=== PATIENT | female | born 1970 | race Caucasian/White ===

== ENCOUNTER 2017-06-18 16:34 | Inpatient (IN) | payer SELFPAY ==
[2017-06-18] MEDS ORDERED: Albuterol Sulfate 2.5 mg/0.5 ml Neb ONE (17:01)
[2017-06-18] MEDS ORDERED: Albuterol Sulfate 2.5 mg/3 ml Neb ONE (17:01)
[2017-06-18] MEDS ORDERED: Magnesium Sulfate 2 GM/100 ML BAG ONE (17:08)
[2017-06-18] MEDS ORDERED: Dexamethasone 4 mg/ml Vial ONE (17:08)
[2017-06-18 17:11] LABS: Oxyhemoglobin 91.1 % (94.0-97.0); Sodium 139 mmol/L (135-148)
[2017-06-18 17:12] LABS: Mode RA; Vent NO
[2017-06-18 17:14] LABS: Bilirubin Negative (Negative); Glucose, Urine (Dipstick) Negative (Negative)
[2017-06-18 17:15] LABS: PTT 28.3 SEC (22.9-36.1)
[2017-06-18 17:15] LABS: Blood, Urine Moderate (Negative); Ketone, Urine Negative (Negative); Nitrite Negative (Negative); Protein, Urine (Dipstick) Negative (Neg-Trace); Urobilinogen 0.2 mg/dL (0.2-1.0)
[2017-06-18 17:29] LABS: Bacteria/HPF None Seen HPF (None Seen); Hyaline Casts/LPF 0-3 HYALINE CAST LPF (0-3 Hyaline); Squamous Epithelial 0-3 HPF (0-3); WBC/HPF 0-3 HPF (0-3)
[2017-06-18 17:32] LABS: #Lymphocytes 1.5 thou/uL (1.20-3.40); #Monocytes 0.6 thou/uL (0.11-0.59); #Neutrophils 4.4 thou/uL (1.40-6.50); %Basophils 0.8 % (0.0-1.0); %Eosinophils 0.4 % (0.0-10.0); %Lymphocytes 22.6 % (21.0-51.0); %Monocytes 8.9 % (0.0-10.0); Hematocrit 36.8 % (36.0-47.0); Mean Platelet Volume 6.7 fL (7.4-10.4); White Blood Cell (WBC) Count 6.5 thou/uL (4.8-10.8)
[2017-06-18 17:36] LABS: Troponin I Less than 0.010 ng/mL (< 0.028)
[2017-06-18 17:37] LABS: ALT (SGPT) 10 U/L (8-55); AST (SGOT) 18 U/L (5-34); Alkaline Phosphatase 60 U/L (40-150); Anion Gap 15 mmol/L (10-20); BUN (Urea Nitrogen) 9 mg/dL (7.0-18.7); Bilirubin, Total 0.2 mg/dL (0.2-1.2); CK (CPK) 388 U/L (29-168); Calc. Creatinine Clearance 0 mL/min (70-130); Calcium 8.6 mg/dL (7.8-10.44); Carbon Dioxide 21 mmol/L (22-29); Chloride 105 mmol/L (98-107); Estimated GFR-MDRD 55; Globulin 2.7 g/dL (2.4-3.5); Lipase Less than 4 U/L (8-78); Protein, Total 6.6 g/dL (6.0-8.3)
[2017-06-18 17:39] LABS: Lactic Acid - Sepsis 3.3 mmol/L (0.5-2.2)
[2017-06-18] MEDS ORDERED: Potassium Chloride 20 MEQ TAB ONE (18:55)
--- NOTE | 2017-06-18 18:59 | RAD ---
SINGLE VIEW OF THE CHEST: 06/18/17 COMPARISON: 03/20/17 HISTORY: Shortness of breath and mid sternal chest pain. FINDINGS: Single view of the chest shows a normal sized cardiomediastinal silhouette. There is no evidence of consolidation, mass, or pleural effusion. The bones are unremarkable. IMPRESSION: No evidence of acute cardiopulmonary disease. POS: [facility]
[2017-06-18] MEDS ORDERED: Ondansetron ODT 4 MG TAB SL PRN (19:37)
[2017-06-18] MEDS ORDERED: Ondansetron HCl/PF 4 MG/2 ML Vial IVP PRN (19:37)
[2017-06-18] MEDS ORDERED: Sodium Chloride 0.9% 1,000 ML IV SCH (19:37)
[2017-06-18] MEDS ORDERED: Potassium Chloride 20 MEQ TAB PO SCH (21:00)
[2017-06-18] MEDS ORDERED: Dexamethasone 4 mg/ml Vial SLOW IVP SCH (21:00)
[2017-06-18] MEDS: HYDROcodone/Acetaminophen 10/325 mg Tablet PO PRN (21:10)
[2017-06-18 21:29] VITALS: BMI 25.4
[2017-06-19] MEDS: HYDROcodone/Acetaminophen 10/325 mg Tablet PO PRN (01:34)
[2017-06-19] MEDS ORDERED: Acetaminophen 325 MG TAB PO PRN (04:28)
[2017-06-19] MEDS ORDERED: Guaifenesin DM 100-10/5 ML UDCUP PO PRN (04:28)
[2017-06-19] MEDS ORDERED: Sodium Chloride 0.9% 1,000 ML IV SCH (04:30)
--- NOTE | 2017-06-19 04:55 | HP ---
REASON FOR ADMISSION: COPD exacerbation. HISTORY OF PRESENTING ILLNESS: The patient gives history of having shortness of breath, which started on Friday. She also had associated headaches. She also felt febrile Friday evening. Patient thought if she increases her albuterol nebulization, her wheezing would reduce. This continued on Friday. She has had cough with expectoration of green sputum. Finally, patient made it to emergency room as her wheezing got worse. She continues to smoke 4-6 cigarettes a day. No complaints of chest pain, palpitation, PND or orthopnea. PAST MEDICAL AND SURGICAL HISTORY: History of COPD, history of CVA with no residual, tubal ligation, knee surgery, cholecystectomy. CURRENT MEDICATIONS: Albuterol nebulizer q.4 hourly p.r.n., albuterol inhaler q.6 hourly p.r.n. ALLERGIES: To ASPIRIN, PENICILLIN. PERSONAL HISTORY: Smokes 4 cigarettes a day. Does not abuse alcohol or drugs. No history of smoking. FAMILY HISTORY: Parents have had history of coronary artery disease. REVIEW OF SYSTEMS: The following complete review of systems was negative, unless otherwise mentioned in the HPI or below: Constitutional: Weight loss or gain, ability to conduct usual activities. Skin: Rash, itching. Eyes: Double vision, pain. ENT/Mouth: Nose bleeding, neck stiffness, pain, tenderness. Cardiovascular: Palpitations, dyspnea on exertion, orthopnea. Respiratory: Shortness of breath, wheezing, cough, hemoptysis, fever or night sweats. Gastrointestinal: Poor appetite, abdominal pain, heartburn, nausea, vomiting, constipation, or diarrhea. Genitourinary: Urgency, frequency, dysuria, nocturia. Musculoskeletal: Pain, swelling. Neurologic/Psychiatric: Anxiety, depression. Allergy/Immunologic: Skin rash, bleeding tendency. PHYSICAL EXAMINATION: GENERAL: The patient is a 46-year-old female who is currently not in any acute distress. VITAL SIGNS: Blood pressure 116/74, pulse 84 per minute, respiratory rate 22 per minute, temperature 97.5 degrees Fahrenheit, saturating 95% on room air. NECK: Supple, no elevated JVD. HEENT: Extraocular muscles intact. Pupils reacting to light. Oral cavity, mucous membranes are dry. No exudates or congestion. CARDIOVASCULAR: S1, S2 heard. Regular rhythm. RESPIRATORY SYSTEM: Scattered wheezes plus bilateral. No rales. ABDOMEN: Soft, bowel sounds heard. No tenderness, rigidity or guarding. EXTREMITIES: No peripheral edema or calf tenderness. VASCULAR SYSTEM: Peripheral pulses 1+ bilateral. No ischemic ulcerations or gangrene. CENTRAL NERVOUS SYSTEM: No gross focal deficits seen. Patient is alert, awake , oriented x3. PSYCHIATRIC SYSTEM: The patient's mood is euthymic. No hallucinations or delusions. LABORATORY AND X-RAY FINDINGS: Chest x-ray done shows no acute cardiopulmonary abnormalities. EKG done shows sinus rhythm at 82 beats per minute. There is poor R-wave progression. Influenza A and B antigens are negative. First set of cardiac enzymes are negative. BNP 59. Potassium is 3.0, bicarbonate is 21, BUN 9, creatinine 1.0. Blood gas done shows a pH of 7.43, PCO2 of 35, pO2 of 69. White count of 6, H and H 12 and 36, platelet count 212 with 67% neutrophils. CLINICAL IMPRESSION AND PLAN: The patient will be admitted to medical floor for acute on chronic obstructive pulmonary disease exacerbation. She will be on DuoNeb q.6 hourly along with empiric doxycycline 100 mg p.o. twice daily. We will also place her on Solu-Medrol 40 mg IV q.6 hourly. She will be on normal saline at 50 mL per hour. This will be discontinued after 1 L. Patient has had recurrent hospitalization with ongoing smoking and noncompliance with medications due to financial reasons. We will continue to closely monitor her on medical floor. LYRIC
[2017-06-19] MEDS: Nicotine 14 MG PATCH TD SCH (05:09)
[2017-06-19] MEDS ORDERED: Diabetic Tussin 200 MG/10 ML UDCUP PO PRN (06:56)
[2017-06-19] MEDS ORDERED: Ondansetron HCl/PF 4 MG/2 ML Vial IVP PRN (06:56)
[2017-06-19] MEDS ORDERED: Eucerin (Mineral Oil/Petrolatum,White) 30 gm Jar TOP PRN (06:56)
[2017-06-19] MEDS ORDERED: cloNIDine HCl 0.1 MG TAB PO PRN (06:56)
[2017-06-19] MEDS ORDERED: Ondansetron ODT 4 MG TAB PO PRN (06:56)
[2017-06-19] MEDS ORDERED: Benzonatate 100 MG CAP PO PRN (06:56)
[2017-06-19] MEDS ORDERED: Artificial Tears 18 DROP/0.9 ML EA EYE PRN (06:56)
[2017-06-19] MEDS ORDERED: Mag-Al 1200 mg/1200 mg/30 ML UDCUP PO PRN (06:56)
[2017-06-19] MEDS ORDERED: Bisacodyl 10 MG SUPP PR PRN (06:56)
[2017-06-19] MEDS ORDERED: Milk Of Magnesia 30 ML UDCUP PO PRN (06:56)
[2017-06-19] MEDS ORDERED: Loratadine 10 MG TAB PO PRN (06:56)
[2017-06-19] MEDS ORDERED: Senokot 8.6 MG TAB PO PRN (06:56)
[2017-06-19] MEDS ORDERED: Sodium Chloride 0.65% Nasal 44 ML BOT EA NARE PRN (06:56)
[2017-06-19] MEDS ORDERED: Loperamide HCl 2 MG CAP PO PRN (06:56)
[2017-06-19] MEDS ORDERED: Chloraseptic Spray 180 ml Bottle PO PRN (06:56)
[2017-06-19] MEDS ORDERED: Temazepam 15 MG CAP PO PRN (06:56)
[2017-06-19] MEDS: Potassium Chloride 20 MEQ TAB PO SCH (08:18)
[2017-06-19] MEDS: guaiFENesin ER 600 MG TAB PO SCH ×2 (08:20→20:26)
[2017-06-19] MEDS: Famotidine 20 MG TAB PO SCH ×2 (08:21→20:25)
[2017-06-19] MEDS: Doxycycline 100 MG CAP PO SCH ×2 (08:24→20:25)
[2017-06-19] MEDS: Enoxaparin Sodium 40 MG/0.4 ML SYRINGE SC SCH (08:37)
[2017-06-19] MEDS: Docusate 100 MG CAP PO SCH ×2 (08:37→20:25)
--- NOTE | 2017-06-19 10:23 | PDOC.PN ---
- Subjective Encounter Start Date: 06/19/17 Encounter Start Time: 07:40 -: old records requested/rev pt is going outside smoking - Objective Resuscitation Status: Resuscitation Status FULL:Full Resuscitation MAR Reviewed: Yes Vital Signs & Weight: Vital Signs (12 hours) Temp Pulse Resp BP BP Pulse Ox 06/19/17 08:00 98.2 F 55 L 18 96 06/19/17 07:05 92 L 06/19/17 07:04 55 L 18 92 L 06/19/17 07:00 97.8 F 55 L 30 H 110/68 97 06/19/17 04:41 97.4 F L 69 18 97/60 92 L 06/19/17 01:30 102/60 06/19/17 01:04 98.0 F 86 20 95/58 L 92 L 06/18/17 23:01 87 18 93 L Weight Weight 138 lb 12.8 oz I&O: 06/18/17 06/19/17 06/20/17 06:59 06:59 06:59 Intake Total 240 Balance 240 Result Diagrams: 06/18/17 17:03 06/18/17 17:02 Phys Exam - Physical Examination Constitutional: NAD HEENT: PERRLA, moist MMs, sclera anicteric Neck: no JVD, supple Respiratory: no rales, wheezing present Cardiovascular: RRR, no significant murmur, no rub Gastrointestinal: soft, non-tender, no distention, positive bowel sounds Musculoskeletal: no edema, pulses present Neurological: non-focal, normal sensation Psychiatric: normal affect, A&O x 3 Skin: no rash, normal turgor Dx/Plan (1) COPD exacerbation Code(s): J44.1 - CHRONIC OBSTRUCTIVE PULMONARY DISEASE W (ACUTE) EXACERBATION Status: Acute (2) Hypokalemia Code(s): E87.6 - HYPOKALEMIA Status: Acute (3) Chronic low back pain Code(s): M54.5 - LOW BACK PAIN; G89.29 - OTHER CHRONIC PAIN Status: Chronic (4) Medical non-compliance Code(s): Z91.19 - PATIENT'S NONCOMPLIANCE W OTH MEDICAL TREATMENT AND REGIMEN Status: Chronic (5) Tobacco abuse Code(s): Z72.0 - TOBACCO USE Status: Chronic - Plan cont current plan of care, continue antibiotics, respiratory therapy * DC IVF * continue current optimum medical therapy for COPD * medication reviewed as below * symptomatic treatment. Review of Systems - Review of Systems Constitutional: negative: Fever, Chills, Sweats, Weakness, Malaise, Other Eyes: negative: Pain, Vision Change, Conjunctivae Inflammation, Eyelid Inflammation, Redness, Other ENT: negative: Ear Pain, Ear Discharge, Nose Pain, Nose Discharge, Nose Congestion, Mouth Pain, Mouth Swelling, Throat Pain, Throat Swelling, Other Respiratory: Cough, Shortness of Breath, Wheezing. negative: Dry, Hemoptysis, SOB with Excertion, Pleuritic Pain, Sputum Cardiovascular: negative: Chest Pain, Palpitations, Orthopnea, Paroxysmal Noc. Dyspnea, Edema, Light Headedness, Other Gastrointestinal: negative: Nausea, Vomiting, Abdominal Pain, Diarrhea, Constipation, Melena, Hematochezia, Other Genitourinary: negative: Dysuria, Frequency, Incontinence, Hematuria, Retention , Other Musculoskeletal: negative: Neck Pain, Shoulder Pain, Arm Pain, Back Pain, Hand Pain, Leg Pain, Foot Pain, Other - Medications/Allergies Allergies/Adverse Reactions: Allergies Allergy/AdvReac Type Severity Reaction Status Date / Time aspirin Allergy Verified 12/17/16 12:53 Penicillins Allergy Verified 12/17/16 12:53 Medications: Current Medications Acetaminophen (Tylenol) 650 mg PO Q4H PRN PRN Reason: Headache/Fever or Pain Hydrocodone Bitart/Acetaminophen ([place] 5/325) 1 tab PO Q4H PRN PRN Reason: Moderate Pain (4-6) Al Hydroxide/Mg Hydroxide (Maalox) 15 ml PO Q4H PRN PRN Reason: Heartburn or Indigestion Albuterol/Ipratropium (Duoneb) 3 ml NEB [id number] [facility] Last Admin: 06/19/17 07:04 Dose: 3 ml Artificial Tears (Tears Naturale) 0 drop EA EYE PRN PRN PRN Reason: Dry Eyes Benzonatate (Tessalon) 100 mg PO Q4H PRN PRN Reason: Cough Bisacodyl (Dulcolax) 10 mg IN DAILYPRN PRN PRN Reason: Constipation Clonidine HCl (Catapres) 0.1 mg PO Q4H PRN PRN Reason: Systolic BP > 180 Docusate Sodium (Colace) 100 mg PO BID [facility] Last Admin: 06/19/17 08:37 Dose: Not Given Doxycycline Hyclate (Vibramycin) 100 mg PO BID [facility] Last Admin: 06/19/17 08:24 Dose: 100 mg Enoxaparin Sodium (Lovenox) 40 mg SC 09 [facility] Last Admin: 06/19/17 08:37 Dose: Not Given Famotidine (Pepcid) 20 mg PO BID [facility] Last Admin: 06/19/17 08:21 Dose: 20 mg Guaifenesin (Robitussin Sf) 200 mg PO Q4H PRN PRN Reason: Cough Guaifenesin (Mucinex) 600 mg PO Q12HR [facility] Last Admin: 06/19/17 08:20 Dose: 600 mg Guaifenesin/Dextromethorphan (Robitussin Dm) 15 ml PO Q4H PRN PRN Reason: Cough Hydralazine HCl (Apresoline) 10 mg SLOW IVP Q4H PRN PRN Reason: Systolic BP > 180 Sodium Chloride (Normal Saline 0.9%) 1,000 mls @ 50 mls/hr IV .Q20H [facility] Stop: 06/20/17 00:29 Last Admin: 06/19/17 05:07 Dose: 1,000 mls Loperamide HCl (Imodium) 2 mg PO PRN PRN PRN Reason: Diarrhea/Loose Stools Loratadine (Claritin) 10 mg PO DAILYPRN PRN PRN Reason: Sinus Symptoms Magnesium Hydroxide (Milk Of Magnesium) 30 ml PO DAILYPRN PRN PRN Reason: Constipation Methylprednisolone Sodium Succinate (Solu-Medrol) 40 mg IVP Q6HR [facility] Last Admin: 06/19/17 05:08 Dose: 40 mg Mineral Oil/White Petrolatum (Eucerin Cream) 0 gm TOP BIDPRN PRN PRN Reason: Dry Skin Mometasone Furoate/Formoterol Fumar (Dulera 200 Mcg/5 Mcg Inhaler) 2 puff INH BID-RT [facility] Nicotine (Nicoderm Patch) 14 mg TD Q24HR [facility] Last Admin: 06/19/17 05:09 Dose: Not Given Ondansetron HCl (Zofran Odt) 4 mg PO Q6H PRN PRN Reason: Nausea/Vomiting Ondansetron HCl (Zofran) 4 mg IVP Q6H PRN PRN Reason: Nausea/Vomiting Phenol (Chloraseptic [place] 180 Ml Bot) 0 ml PO PRN PRN PRN Reason: Sore Throat Potassium Chloride (K-Dur) 40 meq PO QAM-WM [facility] Last Admin: 06/19/17 08:18 Dose: 40 meq Senna (Senokot) 2 tab PO HSPRN PRN PRN Reason: Constipation Sodium Chloride ([place] Nasal [place] 0.65%) 0 ml EA NARE QIDPRN PRN PRN Reason: Nasal Congestion Sodium Chloride (Flush - Normal Saline) 10 ml IVF Q12HR [facility] Last Admin: 06/19/17 08:59 Dose: 10 ml Sodium Chloride (Flush - Normal Saline) 10 ml IVF PRN PRN PRN Reason: Saline Flush Temazepam (Restoril) 15 mg PO HSPRN PRN PRN Reason: Insomnia
[2017-06-19] MEDS: HYDROcodone/Acetaminophen 5/325 mg Tablet PO PRN ×2 (16:46→21:55)
[2017-06-19] MEDS: Mometasone/Formoterol 120 PUFF INHALER INH SCH (18:32)
[2017-06-20 05:03] LABS: #Lymphocytes 0.8 thou/uL (1.20-3.40); #Monocytes 0.2 thou/uL (0.11-0.59); #Neutrophils 7.3 thou/uL (1.40-6.50); %Basophils 0.2 % (0.0-1.0); %Eosinophils 0.1 % (0.0-10.0); %Lymphocytes 9.6 % (21.0-51.0); %Monocytes 2.9 % (0.0-10.0); Hematocrit 38.3 % (36.0-47.0); Mean Platelet Volume 7.1 fL (7.4-10.4); Red Blood Cell (RBC) Count 3.91 mill/uL (4.20-5.40); White Blood Cell (WBC) Count 8.3 thou/uL (4.8-10.8)
[2017-06-20] MEDS: HYDROcodone/Acetaminophen 5/325 mg Tablet PO PRN (05:49)
[2017-06-20 06:11] LABS: Anion Gap 15 mmol/L (10-20); BUN (Urea Nitrogen) 10 mg/dL (7.0-18.7); Calc. Creatinine Clearance 79 mL/min (70-130); Calcium 9.3 mg/dL (7.8-10.44); Carbon Dioxide 22 mmol/L (22-29); Chloride 106 mmol/L (98-107); Estimated GFR-MDRD 68
[2017-06-20] MEDS: Nicotine 14 MG PATCH TD SCH (07:00)
[2017-06-20] MEDS: Mometasone/Formoterol 120 PUFF INHALER INH SCH ×2 (08:50→19:28)
[2017-06-20] MEDS: Potassium Chloride 20 MEQ TAB PO SCH (09:17)
[2017-06-20] MEDS: Doxycycline 100 MG CAP PO SCH ×2 (09:18→23:13)
[2017-06-20] MEDS: Famotidine 20 MG TAB PO SCH ×2 (09:19→23:13)
[2017-06-20] MEDS: guaiFENesin ER 600 MG TAB PO SCH ×2 (09:20→23:16)
[2017-06-20] MEDS: Enoxaparin Sodium 40 MG/0.4 ML SYRINGE SC SCH (09:20)
[2017-06-20] MEDS: Docusate 100 MG CAP PO SCH ×2 (09:21→23:14)
[2017-06-20] MEDS: HYDROcodone/Acetaminophen 10/325 mg Tablet PO PRN ×3 (09:47→23:35)
--- NOTE | 2017-06-20 11:07 | PDOC.PN ---
- Subjective Encounter Start Date: 06/20/17 Encounter Start Time: 09:50 c/o neck pain, going outside to smoke, on room air - Objective Resuscitation Status: Resuscitation Status FULL:Full Resuscitation MAR Reviewed: Yes Vital Signs & Weight: Vital Signs (12 hours) Temp Pulse Resp BP Pulse Ox 06/20/17 08:50 68 20 94 L 06/20/17 08:37 94 L 06/20/17 08:32 68 20 94 L 06/20/17 08:00 98.6 F 68 20 94 L 06/20/17 07:39 97.6 F 65 16 112/70 93 L 06/20/17 00:32 69 16 92 L Weight Weight 138 lb 12.8 oz I&O: 06/19/17 06/20/17 06/21/17 06:59 06:59 06:59 Intake Total 960 Balance 960 Result Diagrams: 06/20/17 04:04 06/20/17 04:04 Phys Exam - Physical Examination Constitutional: NAD HEENT: PERRLA, moist MMs, sclera anicteric Neck: no JVD, supple neck sprain+ Respiratory: no wheezing, no rales, no rhonchi Cardiovascular: RRR, no significant murmur, no rub Gastrointestinal: soft, non-tender, no distention, positive bowel sounds Musculoskeletal: no edema, pulses present Neurological: non-focal, normal sensation, moves all 4 limbs Psychiatric: normal affect, A&O x 3 Skin: no rash, normal turgor Dx/Plan (1) COPD exacerbation Code(s): J44.1 - CHRONIC OBSTRUCTIVE PULMONARY DISEASE W (ACUTE) EXACERBATION Status: Acute (2) Hypokalemia Code(s): E87.6 - HYPOKALEMIA Status: Acute (3) Chronic low back pain Code(s): M54.5 - LOW BACK PAIN; G89.29 - OTHER CHRONIC PAIN Status: Chronic (4) Medical non-compliance Code(s): Z91.19 - PATIENT'S NONCOMPLIANCE W OTH MEDICAL TREATMENT AND REGIMEN Status: Chronic (5) Tobacco abuse Code(s): Z72.0 - TOBACCO USE Status: Chronic - Plan cont current plan of care, continue antibiotics, respiratory therapy * will do repeat blood culture as current one is positive for coag neg staph. * will increase dose of norco for pain * will add flexeril * medication reviewed as below * symptomatic treatment. Review of Systems - Review of Systems Eyes: negative: Pain, Vision Change, Conjunctivae Inflammation, Eyelid Inflammation, Redness, Other ENT: negative: Ear Pain, Ear Discharge, Nose Pain, Nose Discharge, Nose Congestion, Mouth Pain, Mouth Swelling, Throat Pain, Throat Swelling, Other Respiratory: negative: Cough, Dry, Shortness of Breath, Hemoptysis, SOB with Excertion, Pleuritic Pain, Sputum, Wheezing Cardiovascular: negative: Chest Pain, Palpitations, Orthopnea, Paroxysmal Noc. Dyspnea, Edema, Light Headedness, Other Gastrointestinal: negative: Nausea, Vomiting, Abdominal Pain, Diarrhea, Constipation, Melena, Hematochezia, Other Genitourinary: negative: Dysuria, Frequency, Incontinence, Hematuria, Retention , Other Musculoskeletal: Neck Pain. negative: Shoulder Pain, Arm Pain, Back Pain, Hand Pain, Leg Pain, Foot Pain, Other - Medications/Allergies Allergies/Adverse Reactions: Allergies Allergy/AdvReac Type Severity Reaction Status Date / Time aspirin Allergy Verified 12/17/16 12:53 Penicillins Allergy Verified 12/17/16 12:53 Medications: Current Medications Acetaminophen (Tylenol) 650 mg PO Q4H PRN PRN Reason: Headache/Fever or Pain Hydrocodone Bitart/Acetaminophen ([place] 10/325) 1 tab PO Q4H PRN PRN Reason: Mild-Moderate Pain (1-5) Last Admin: 06/20/17 09:47 Dose: 1 tab Hydrocodone Bitart/Acetaminophen ([place] 10/325) 2 tab PO Q4H PRN PRN Reason: Moderate to Severe Pain (6-10) Al Hydroxide/Mg Hydroxide (Maalox) 15 ml PO Q4H PRN PRN Reason: Heartburn or Indigestion Albuterol/Ipratropium (Duoneb) 3 ml NEB [id number] [facility] Last Admin: 06/20/17 08:32 Dose: 3 ml Artificial Tears (Tears Naturale) 0 drop EA EYE PRN PRN PRN Reason: Dry Eyes Benzonatate (Tessalon) 100 mg PO Q4H PRN PRN Reason: Cough Bisacodyl (Dulcolax) 10 mg IN DAILYPRN PRN PRN Reason: Constipation Clonidine HCl (Catapres) 0.1 mg PO Q4H PRN PRN Reason: Systolic BP > 180 Cyclobenzaprine HCl (Flexeril) 10 mg PO TID PRN PRN Reason: Muscle Spasm Docusate Sodium (Colace) 100 mg PO BID [facility] Last Admin: 06/20/17 09:21 Dose: Not Given Doxycycline Hyclate (Vibramycin) 100 mg PO BID [facility] Last Admin: 06/20/17 09:18 Dose: 100 mg Enoxaparin Sodium (Lovenox) 40 mg SC 09 [facility] Last Admin: 06/20/17 09:20 Dose: Not Given Famotidine (Pepcid) 20 mg PO BID [facility] Last Admin: 06/20/17 09:19 Dose: 20 mg Guaifenesin (Robitussin Sf) 200 mg PO Q4H PRN PRN Reason: Cough Guaifenesin (Mucinex) 600 mg PO Q12HR [facility] Last Admin: 06/20/17 09:20 Dose: 600 mg Guaifenesin/Dextromethorphan (Robitussin Dm) 15 ml PO Q4H PRN PRN Reason: Cough Hydralazine HCl (Apresoline) 10 mg SLOW IVP Q4H PRN PRN Reason: Systolic BP > 180 Loperamide HCl (Imodium) 2 mg PO PRN PRN PRN Reason: Diarrhea/Loose Stools Loratadine (Claritin) 10 mg PO DAILYPRN PRN PRN Reason: Sinus Symptoms Magnesium Hydroxide (Milk Of Magnesium) 30 ml PO DAILYPRN PRN PRN Reason: Constipation Methylprednisolone Sodium Succinate (Solu-Medrol) 40 mg IVP Q6HR [facility] Last Admin: 06/20/17 05:46 Dose: 40 mg Mineral Oil/White Petrolatum (Eucerin Cream) 0 gm TOP BIDPRN PRN PRN Reason: Dry Skin Mometasone Furoate/Formoterol Fumar (Dulera 200 Mcg/5 Mcg Inhaler) 2 puff INH BID-RT [facility] Last Admin: 06/20/17 08:50 Dose: 2 puff Nicotine (Nicoderm Patch) 14 mg TD Q24HR [facility] Last Admin: 06/20/17 07:00 Dose: Not Given Ondansetron HCl (Zofran Odt) 4 mg PO Q6H PRN PRN Reason: Nausea/Vomiting Ondansetron HCl (Zofran) 4 mg IVP Q6H PRN PRN Reason: Nausea/Vomiting Last Admin: 06/20/17 00:06 Dose: 4 mg Phenol (Chloraseptic [place] 180 Ml Bot) 0 ml PO PRN PRN PRN Reason: Sore Throat Last Admin: 06/19/17 14:24 Dose: 2 sprays Potassium Chloride (K-Dur) 40 meq PO QAM-WM [facility] Last Admin: 06/20/17 09:17 Dose: 40 meq Senna (Senokot) 2 tab PO HSPRN PRN PRN Reason: Constipation Sodium Chloride ([place] Nasal [place] 0.65%) 0 ml EA NARE QIDPRN PRN PRN Reason: Nasal Congestion Sodium Chloride (Flush - Normal Saline) 10 ml IVF Q12HR [facility] Last Admin: 06/20/17 09:21 Dose: 10 ml Sodium Chloride (Flush - Normal Saline) 10 ml IVF PRN PRN PRN Reason: Saline Flush Last Admin: 06/20/17 05:46 Dose: 10 ml Temazepam (Restoril) 15 mg PO HSPRN PRN PRN Reason: Insomnia
[2017-06-20] MEDS: Sterile Water 10 ML ONE ×2 (13:11→17:23)
[2017-06-21] MEDS ORDERED: diphenhydrAMINE HCl 25 MG CAP PO SCH (02:45)
[2017-06-21] MEDS: Nicotine 14 MG PATCH TD SCH (06:10)
[2017-06-21] MEDS ORDERED: diphenhydrAMINE HCl 25 MG CAP PO PRN (06:54)
[2017-06-21] MEDS: Mometasone/Formoterol 120 PUFF INHALER INH SCH ×2 (07:08→19:42)
[2017-06-21] MEDS: Potassium Chloride 20 MEQ TAB PO SCH (08:45)
[2017-06-21] MEDS: Famotidine 20 MG TAB PO SCH ×2 (08:46→19:34)
[2017-06-21] MEDS: guaiFENesin ER 600 MG TAB PO SCH ×2 (08:46→19:35)
[2017-06-21] MEDS: Docusate 100 MG CAP PO SCH ×2 (08:46→19:34)
[2017-06-21] MEDS: HYDROcodone/Acetaminophen 10/325 mg Tablet PO PRN ×3 (08:51→19:35)
[2017-06-21] MEDS: Enoxaparin Sodium 40 MG/0.4 ML SYRINGE SC SCH (09:05)
--- NOTE | 2017-06-21 12:24 | PDOC.PN ---
- Subjective Encounter Start Date: 06/21/17 Encounter Start Time: 10:20 Patient seen and examined. No new complaints. No overnight events - Objective Resuscitation Status: Resuscitation Status FULL:Full Resuscitation MAR Reviewed: Yes Vital Signs & Weight: Vital Signs (12 hours) Temp Pulse Resp BP Pulse Ox 06/21/17 08:00 97.7 F 70 22 H 114/72 92 L 06/21/17 07:08 60 12 06/21/17 06:56 90 L 06/21/17 06:54 60 12 06/21/17 04:00 97.5 F L 72 16 127/75 91 L 06/21/17 00:42 16 Weight Weight 138 lb 12.8 oz I&O: 06/20/17 06/21/17 06/22/17 06:59 06:59 06:59 Intake Total 960 240 Balance 960 240 Result Diagrams: 06/20/17 04:04 06/20/17 04:04 Phys Exam - Physical Examination Constitutional: NAD HEENT: PERRLA, moist MMs, sclera anicteric Neck: no JVD, supple Respiratory: no wheezing, no rales, no rhonchi reduced air entry Cardiovascular: RRR, no significant murmur, no rub Gastrointestinal: soft, non-tender, no distention, positive bowel sounds Musculoskeletal: no edema, pulses present Neurological: non-focal, normal sensation, moves all 4 limbs Psychiatric: normal affect, A&O x 3 Skin: no rash, normal turgor Dx/Plan (1) COPD exacerbation Code(s): J44.1 - CHRONIC OBSTRUCTIVE PULMONARY DISEASE W (ACUTE) EXACERBATION Status: Acute (2) Hypokalemia Code(s): E87.6 - HYPOKALEMIA Status: Acute (3) Chronic low back pain Code(s): M54.5 - LOW BACK PAIN; G89.29 - OTHER CHRONIC PAIN Status: Chronic (4) Medical non-compliance Code(s): Z91.19 - PATIENT'S NONCOMPLIANCE W OTH MEDICAL TREATMENT AND REGIMEN Status: Chronic (5) Tobacco abuse Code(s): Z72.0 - TOBACCO USE Status: Chronic (6) Lactic acidosis Code(s): E87.2 - ACIDOSIS Status: Acute (7) Neck pain Code(s): M54.2 - CERVICALGIA Status: Acute - Plan cont current plan of care, continue antibiotics, respiratory therapy * continue current optimum medical therapy for COPD * pt is slowly improving * medication reviewed as below * symptomatic treatment.. * repeat labs tomorrow * levaquin started Review of Systems - Review of Systems ENT: negative: Ear Pain, Ear Discharge, Nose Pain, Nose Discharge, Nose Congestion, Mouth Pain, Mouth Swelling, Throat Pain, Throat Swelling, Other Respiratory: negative: Cough, Dry, Shortness of Breath, Hemoptysis, SOB with Excertion, Pleuritic Pain, Sputum, Wheezing Cardiovascular: negative: Chest Pain, Palpitations, Orthopnea, Paroxysmal Noc. Dyspnea, Edema, Light Headedness, Other Gastrointestinal: negative: Nausea, Vomiting, Abdominal Pain, Diarrhea, Constipation, Melena, Hematochezia, Other Genitourinary: negative: Dysuria, Frequency, Incontinence, Hematuria, Retention , Other Musculoskeletal: negative: Neck Pain, Shoulder Pain, Arm Pain, Back Pain, Hand Pain, Leg Pain, Foot Pain, Other Skin: negative: Rash, Lesions, [place], Bruising, Other - Medications/Allergies Allergies/Adverse Reactions: Allergies Allergy/AdvReac Type Severity Reaction Status Date / Time aspirin Allergy Verified 12/17/16 12:53 Penicillins Allergy Verified 12/17/16 12:53 Medications: Current Medications Acetaminophen (Tylenol) 650 mg PO Q4H PRN PRN Reason: Headache/Fever or Pain Hydrocodone Bitart/Acetaminophen ([place] 10/325) 1 tab PO Q4H PRN PRN Reason: Mild-Moderate Pain (1-5) Last Admin: 06/20/17 17:25 Dose: 1 tab Hydrocodone Bitart/Acetaminophen ([place] 10/325) 2 tab PO Q4H PRN PRN Reason: Moderate to Severe Pain (6-10) Last Admin: 06/21/17 08:51 Dose: 2 tab Al Hydroxide/Mg Hydroxide (Maalox) 15 ml PO Q4H PRN PRN Reason: Heartburn or Indigestion Albuterol/Ipratropium (Duoneb) 3 ml NEB [id number] [facility] Last Admin: 06/21/17 06:54 Dose: 3 ml Artificial Tears (Tears Naturale) 0 drop EA EYE PRN PRN PRN Reason: Dry Eyes Benzonatate (Tessalon) 100 mg PO Q4H PRN PRN Reason: Cough Bisacodyl (Dulcolax) 10 mg OR DAILYPRN PRN PRN Reason: Constipation Clonidine HCl (Catapres) 0.1 mg PO Q4H PRN PRN Reason: Systolic BP > 180 Cyclobenzaprine HCl (Flexeril) 10 mg PO TID PRN PRN Reason: Muscle Spasm Diphenhydramine HCl (Benadryl) 25 mg PO Q4H PRN PRN Reason: Itching Docusate Sodium (Colace) 100 mg PO BID [facility] Last Admin: 06/21/17 08:46 Dose: 100 mg Enoxaparin Sodium (Lovenox) 40 mg SC 0900 [facility] Last Admin: 06/21/17 09:05 Dose: Not Given Famotidine (Pepcid) 20 mg PO BID [facility] Last Admin: 06/21/17 08:46 Dose: 20 mg Guaifenesin (Robitussin Sf) 200 mg PO Q4H PRN PRN Reason: Cough Guaifenesin (Mucinex) 600 mg PO Q12HR [facility] Last Admin: 06/21/17 08:46 Dose: 600 mg Guaifenesin/Dextromethorphan (Robitussin Dm) 15 ml PO Q4H PRN PRN Reason: Cough Hydralazine HCl (Apresoline) 10 mg SLOW IVP Q4H PRN PRN Reason: Systolic BP > 180 Levofloxacin (Levaquin) 500 mg PO 0600 [facility] Loperamide HCl (Imodium) 2 mg PO PRN PRN PRN Reason: Diarrhea/Loose Stools Loratadine (Claritin) 10 mg PO DAILYPRN PRN PRN Reason: Sinus Symptoms Magnesium Hydroxide (Milk Of Magnesium) 30 ml PO DAILYPRN PRN PRN Reason: Constipation Methylprednisolone Sodium Succinate (Solu-Medrol) 40 mg IVP Q6HR [facility] Last Admin: 06/21/17 12:20 Dose: 40 mg Mineral Oil/White Petrolatum (Eucerin Cream) 0 gm TOP BIDPRN PRN PRN Reason: Dry Skin Mometasone Furoate/Formoterol Fumar (Dulera 200 Mcg/5 Mcg Inhaler) 2 puff INH BID-RT [facility] Last Admin: 06/21/17 07:08 Dose: 2 puff Nicotine (Nicoderm Patch) 14 mg TD Q24HR [facility] Last Admin: 06/21/17 06:10 Dose: Not Given Ondansetron HCl (Zofran Odt) 4 mg PO Q6H PRN PRN Reason: Nausea/Vomiting Ondansetron HCl (Zofran) 4 mg IVP Q6H PRN PRN Reason: Nausea/Vomiting Last Admin: 06/20/17 00:06 Dose: 4 mg Phenol (Chloraseptic [place] 180 Ml Bot) 0 ml PO PRN PRN PRN Reason: Sore Throat Last Admin: 06/19/17 14:24 Dose: 2 sprays Potassium Chloride (K-Dur) 40 meq PO QAM[facility] Last Admin: 06/21/17 08:45 Dose: 40 meq Senna (Senokot) 2 tab PO HSPRN PRN PRN Reason: Constipation Sodium Chloride ([place] Nasal [place] 0.65%) 0 ml EA NARE QIDPRN PRN PRN Reason: Nasal Congestion Sodium Chloride (Flush - Normal Saline) 10 ml IVF Q12HR [facility] Last Admin: 06/21/17 12:20 Dose: 10 ml Sodium Chloride (Flush - Normal Saline) 10 ml IVF PRN PRN PRN Reason: Saline Flush Last Admin: 06/20/17 05:46 Dose: 10 ml Temazepam (Restoril) 15 mg PO HSPRN PRN PRN Reason: Insomnia
[2017-06-21] MEDS: Cyclobenzaprine 10 MG TAB PO PRN (23:02)
[2017-06-22 04:40] LABS: Anion Gap 12 mmol/L (10-20); BUN (Urea Nitrogen) 17 mg/dL (7.0-18.7); Calc. Creatinine Clearance 78 mL/min (70-130); Calcium 9.3 mg/dL (7.8-10.44); Carbon Dioxide 28 mmol/L (22-29); Chloride 102 mmol/L (98-107); Estimated GFR-MDRD 67
[2017-06-22 04:41] LABS: #Lymphocytes 1.3 thou/uL (1.20-3.40); #Monocytes 0.3 thou/uL (0.11-0.59); #Neutrophils 8.5 thou/uL (1.40-6.50); %Basophils 0.3 % (0.0-1.0); %Eosinophils 0.2 % (0.0-10.0); %Lymphocytes 12.7 % (21.0-51.0); %Monocytes 3.2 % (0.0-10.0); Mean Platelet Volume 6.8 fL (7.4-10.4); White Blood Cell (WBC) Count 10.2 thou/uL (4.8-10.8)
[2017-06-22] MEDS: HYDROcodone/Acetaminophen 10/325 mg Tablet PO PRN ×2 (06:11→21:11)
[2017-06-22] MEDS: Nicotine 14 MG PATCH TD SCH (06:16)
[2017-06-22] MEDS: Potassium Chloride 20 MEQ TAB PO SCH (07:53)
[2017-06-22] MEDS: Docusate 100 MG CAP PO SCH ×2 (07:53→20:59)
[2017-06-22] MEDS: Enoxaparin Sodium 40 MG/0.4 ML SYRINGE SC SCH (07:54)
[2017-06-22] MEDS: Famotidine 20 MG TAB PO SCH ×2 (07:54→21:00)
[2017-06-22] MEDS: guaiFENesin ER 600 MG TAB PO SCH ×2 (07:54→21:00)
[2017-06-22] MEDS: Mometasone/Formoterol 120 PUFF INHALER INH SCH ×2 (10:32→19:10)
--- NOTE | 2017-06-22 10:54 | PDOC.PN ---
- Subjective Encounter Start Date: 06/22/17 Encounter Start Time: 10:00 Patient seen and examined. No new complaints. No overnight events, still has neck pain - Objective Resuscitation Status: Resuscitation Status FULL:Full Resuscitation MAR Reviewed: Yes Vital Signs & Weight: Vital Signs (12 hours) Temp Pulse Resp BP BP Pulse Ox 06/22/17 10:32 80 20 92 L 06/22/17 10:18 92 L 06/22/17 10:15 80 20 92 L 06/22/17 08:00 97.9 F 74 22 H 134/85 92 L 06/22/17 04:42 97.5 F L 52 L 18 128/75 92 L 06/22/17 01:05 61 12 92 L 06/22/17 00:00 97.7 F 61 20 123/79 92 L Weight Weight 138 lb 12.8 oz I&O: 06/21/17 06/22/17 06/23/17 06:59 06:59 06:59 Intake Total 600 Balance 600 Result Diagrams: 06/22/17 03:47 06/22/17 03:47 Phys Exam - Physical Examination Constitutional: NAD HEENT: PERRLA, moist MMs, sclera anicteric Neck: no nodes, no JVD, supple Respiratory: no wheezing, no rales, no rhonchi Cardiovascular: RRR, no significant murmur, no rub Gastrointestinal: soft, non-tender, no distention, positive bowel sounds Musculoskeletal: no edema, pulses present Neurological: non-focal, normal sensation Psychiatric: normal affect, A&O x 3 Skin: no rash, normal turgor Dx/Plan (1) COPD exacerbation Code(s): J44.1 - CHRONIC OBSTRUCTIVE PULMONARY DISEASE W (ACUTE) EXACERBATION Status: Acute (2) Hypokalemia Code(s): E87.6 - HYPOKALEMIA Status: Acute (3) Chronic low back pain Code(s): M54.5 - LOW BACK PAIN; G89.29 - OTHER CHRONIC PAIN Status: Chronic (4) Medical non-compliance Code(s): Z91.19 - PATIENT'S NONCOMPLIANCE W OTH MEDICAL TREATMENT AND REGIMEN Status: Chronic (5) Tobacco abuse Code(s): Z72.0 - TOBACCO USE Status: Chronic (6) Lactic acidosis Code(s): E87.2 - ACIDOSIS Status: Acute (7) Neck pain Code(s): M54.2 - CERVICALGIA Status: Acute - Plan cont current plan of care, continue antibiotics, respiratory therapy * will get xray neck * continue current optimum medical therapy for COPD * will reduce steroid today * plan for discharge tomorrow * medication reviewed as below * symptomatic treatment.. Review of Systems - Review of Systems Constitutional: negative: Fever, Chills, Sweats, Weakness, Malaise, Other Eyes: negative: Pain, Vision Change, Conjunctivae Inflammation, Eyelid Inflammation, Redness, Other ENT: negative: Ear Pain, Ear Discharge, Nose Pain, Nose Discharge, Nose Congestion, Mouth Pain, Mouth Swelling, Throat Pain, Throat Swelling, Other Respiratory: negative: Cough, Dry, Shortness of Breath, Hemoptysis, SOB with Excertion, Pleuritic Pain, Sputum, Wheezing Cardiovascular: negative: Chest Pain, Palpitations, Orthopnea, Paroxysmal Noc. Dyspnea, Edema, Light Headedness, Other Gastrointestinal: negative: Nausea, Vomiting, Abdominal Pain, Diarrhea, Constipation, Melena, Hematochezia, Other Genitourinary: negative: Dysuria, Frequency, Incontinence, Hematuria, Retention , Other Musculoskeletal: Neck Pain. negative: Shoulder Pain, Arm Pain, Back Pain, Hand Pain, Leg Pain, Foot Pain, Other - Medications/Allergies Allergies/Adverse Reactions: Allergies Allergy/AdvReac Type Severity Reaction Status Date / Time aspirin Allergy Verified 12/17/16 12:53 Penicillins Allergy Verified 12/17/16 12:53 Medications: Current Medications Acetaminophen (Tylenol) 650 mg PO Q4H PRN PRN Reason: Headache/Fever or Pain Hydrocodone Bitart/Acetaminophen ([place] 10/325) 1 tab PO Q4H PRN PRN Reason: Mild-Moderate Pain (1-5) Last Admin: 06/20/17 17:25 Dose: 1 tab Hydrocodone Bitart/Acetaminophen ([place] 10/325) 2 tab PO Q4H PRN PRN Reason: Moderate to Severe Pain (6-10) Last Admin: 06/22/17 06:11 Dose: 2 tab Al Hydroxide/Mg Hydroxide (Maalox) 15 ml PO Q4H PRN PRN Reason: Heartburn or Indigestion Albuterol/Ipratropium (Duoneb) 3 ml NEB [id number] [facility] Last Admin: 06/22/17 10:15 Dose: 3 ml Artificial Tears (Tears Naturale) 0 drop EA EYE PRN PRN PRN Reason: Dry Eyes Benzonatate (Tessalon) 100 mg PO Q4H PRN PRN Reason: Cough Bisacodyl (Dulcolax) 10 mg [place] DAILYPRN PRN PRN Reason: Constipation Clonidine HCl (Catapres) 0.1 mg PO Q4H PRN PRN Reason: Systolic BP > 180 Cyclobenzaprine HCl (Flexeril) 10 mg PO TID PRN PRN Reason: Muscle Spasm Last Admin: 06/21/17 23:02 Dose: 10 mg Diphenhydramine HCl (Benadryl) 25 mg PO Q4H PRN PRN Reason: Itching Docusate Sodium (Colace) 100 mg PO BID [facility] Last Admin: 06/22/17 07:53 Dose: Not Given Enoxaparin Sodium (Lovenox) 40 mg SC 0900 [facility] Last Admin: 06/22/17 07:54 Dose: Not Given Famotidine (Pepcid) 20 mg PO BID [facility] Last Admin: 06/22/17 07:54 Dose: 20 mg Guaifenesin (Robitussin Sf) 200 mg PO Q4H PRN PRN Reason: Cough Guaifenesin (Mucinex) 600 mg PO Q12HR [facility] Last Admin: 06/22/17 07:54 Dose: 600 mg Guaifenesin/Dextromethorphan (Robitussin Dm) 15 ml PO Q4H PRN PRN Reason: Cough Hydralazine HCl (Apresoline) 10 mg SLOW IVP Q4H PRN PRN Reason: Systolic BP > 180 Levofloxacin (Levaquin) 500 mg PO 0600 [facility] Last Admin: 06/22/17 06:12 Dose: 500 mg Loperamide HCl (Imodium) 2 mg PO PRN PRN PRN Reason: Diarrhea/Loose Stools Loratadine (Claritin) 10 mg PO DAILYPRN PRN PRN Reason: Sinus Symptoms Magnesium Hydroxide (Milk Of Magnesium) 30 ml PO DAILYPRN PRN PRN Reason: Constipation Methylprednisolone Sodium Succinate (Solu-Medrol) 40 mg IVP Q6HR [facility] Last Admin: 06/22/17 06:12 Dose: 40 mg Mineral Oil/White Petrolatum (Eucerin Cream) 0 gm TOP BIDPRN PRN PRN Reason: Dry Skin Mometasone Furoate/Formoterol Fumar (Dulera 200 Mcg/5 Mcg Inhaler) 2 puff INH BID-RT [facility] Last Admin: 06/22/17 10:32 Dose: 2 puff Nicotine (Nicoderm Patch) 14 mg TD Q24HR [facility] Last Admin: 06/22/17 06:16 Dose: Not Given Ondansetron HCl (Zofran Odt) 4 mg PO Q6H PRN PRN Reason: Nausea/Vomiting Ondansetron HCl (Zofran) 4 mg IVP Q6H PRN PRN Reason: Nausea/Vomiting Last Admin: 06/20/17 00:06 Dose: 4 mg Phenol (Chloraseptic [place] 180 Ml Bot) 0 ml PO PRN PRN PRN Reason: Sore Throat Last Admin: 06/19/17 14:24 Dose: 2 sprays Potassium Chloride (K-Dur) 40 meq PO QAM-WM [facility] Last Admin: 06/22/17 07:53 Dose: 40 meq Senna (Senokot) 2 tab PO HSPRN PRN PRN Reason: Constipation Sodium Chloride ([place] Nasal [place] 0.65%) 0 ml EA NARE QIDPRN PRN PRN Reason: Nasal Congestion Sodium Chloride (Flush - Normal Saline) 10 ml IVF Q12HR [facility] Last Admin: 06/22/17 07:54 Dose: 10 ml Sodium Chloride (Flush - Normal Saline) 10 ml IVF PRN PRN PRN Reason: Saline Flush Last Admin: 06/20/17 05:46 Dose: 10 ml Temazepam (Restoril) 15 mg PO HSPRN PRN PRN Reason: Insomnia
[2017-06-22] MEDS: Cyclobenzaprine 10 MG TAB PO PRN (13:00)
--- NOTE | 2017-06-22 17:50 | RAD ---
FOUR VIEWS CERVICAL SPINE: Technique: AP, lateral, open mouth odontoid and swimmer's view cervical spine. History: Neck pain. FINDINGS: No evidence of cervical spine fractures, subluxations, or bony lesions. IMPRESSION: Normal four views cervical spine. POS: [facility]
[2017-06-23] MEDS: Nicotine 14 MG PATCH TD SCH (05:45)
[2017-06-23] MEDS: Potassium Chloride 20 MEQ TAB PO SCH (08:00)
[2017-06-23] MEDS: Famotidine 20 MG TAB PO SCH (08:01)
[2017-06-23] MEDS: guaiFENesin ER 600 MG TAB PO SCH (08:01)
[2017-06-23 08:02] VITALS: BP 124/79; TEMP 98.2
[2017-06-23] MEDS: Enoxaparin Sodium 40 MG/0.4 ML SYRINGE SC SCH ×2 (08:02→08:06)
[2017-06-23] MEDS: Docusate 100 MG CAP PO SCH (08:02)
[2017-06-23] MEDS: HYDROcodone/Acetaminophen 10/325 mg Tablet PO PRN (08:10)
[2017-06-23] MEDS: Mometasone/Formoterol 120 PUFF INHALER INH SCH (09:10)
--- NOTE | 2017-06-23 11:16 | PDOC.PN ---
- Subjective Encounter Start Date: 06/23/17 Encounter Start Time: 09:00 Patient seen and examined. No new complaints. No overnight events - Objective Resuscitation Status: Resuscitation Status FULL:Full Resuscitation MAR Reviewed: Yes Vital Signs & Weight: Vital Signs (12 hours) Temp Pulse Resp BP Pulse Ox 06/23/17 09:11 94 L 06/23/17 07:58 98.2 F 77 18 124/79 92 L 06/23/17 07:11 97.8 F 82 16 93 L 06/23/17 01:00 82 12 93 L Weight Weight 138 lb 12.8 oz I&O: 06/22/17 06/23/17 06/24/17 06:59 06:59 06:59 Intake Total 600 720 Balance 600 720 Result Diagrams: 06/22/17 03:47 06/22/17 03:47 Phys Exam - Physical Examination Constitutional: NAD HEENT: PERRLA, moist MMs, sclera anicteric Neck: no JVD, supple Respiratory: no wheezing, no rales, no rhonchi Cardiovascular: RRR, no significant murmur, no rub Gastrointestinal: soft, non-tender, no distention, positive bowel sounds Musculoskeletal: no edema, pulses present Neurological: non-focal, normal sensation Psychiatric: normal affect, A&O x 3 Skin: no rash, normal turgor Dx/Plan (1) COPD exacerbation Code(s): J44.1 - CHRONIC OBSTRUCTIVE PULMONARY DISEASE W (ACUTE) EXACERBATION Status: Acute (2) Hypokalemia Code(s): E87.6 - HYPOKALEMIA Status: Acute (3) Chronic low back pain Code(s): M54.5 - LOW BACK PAIN; G89.29 - OTHER CHRONIC PAIN Status: Chronic (4) Medical non-compliance Code(s): Z91.19 - PATIENT'S NONCOMPLIANCE W OTH MEDICAL TREATMENT AND REGIMEN Status: Chronic (5) Tobacco abuse Code(s): Z72.0 - TOBACCO USE Status: Chronic (6) Lactic acidosis Code(s): E87.2 - ACIDOSIS Status: Acute (7) Neck pain Code(s): M54.2 - CERVICALGIA Status: Acute - Plan cont current plan of care, continue antibiotics, respiratory therapy * medication reviewed as below * symptomatic treatment. * see discharge summery * medically stable.. Review of Systems - Review of Systems ENT: negative: Ear Pain, Ear Discharge, Nose Pain, Nose Discharge, Nose Congestion, Mouth Pain, Mouth Swelling, Throat Pain, Throat Swelling, Other Respiratory: negative: Cough, Dry, Shortness of Breath, Hemoptysis, SOB with Excertion, Pleuritic Pain, Sputum, Wheezing Cardiovascular: negative: Chest Pain, Palpitations, Orthopnea, Paroxysmal Noc. Dyspnea, Edema, Light Headedness, Other Gastrointestinal: negative: Nausea, Vomiting, Abdominal Pain, Diarrhea, Constipation, Melena, Hematochezia, Other Genitourinary: negative: Dysuria, Frequency, Incontinence, Hematuria, Retention , Other - Medications/Allergies Allergies/Adverse Reactions: Allergies Allergy/AdvReac Type Severity Reaction Status Date / Time aspirin Allergy Verified 12/17/16 12:53 Penicillins Allergy Verified 12/17/16 12:53 Medications: Current Medications Acetaminophen (Tylenol) 650 mg PO Q4H PRN PRN Reason: Headache/Fever or Pain Hydrocodone Bitart/Acetaminophen ([place] 10/325) 1 tab PO Q4H PRN PRN Reason: Mild-Moderate Pain (1-5) Last Admin: 06/20/17 17:25 Dose: 1 tab Hydrocodone Bitart/Acetaminophen ([place] 10/325) 2 tab PO Q4H PRN PRN Reason: Moderate to Severe Pain (6-10) Last Admin: 06/23/17 08:10 Dose: 2 tab Al Hydroxide/Mg Hydroxide (Maalox) 15 ml PO Q4H PRN PRN Reason: Heartburn or Indigestion Albuterol/Ipratropium (Duoneb) 3 ml NEB [id number] [facility] Last Admin: 06/23/17 09:09 Dose: Not Given Artificial Tears (Tears Naturale) 0 drop EA EYE PRN PRN PRN Reason: Dry Eyes Benzonatate (Tessalon) 100 mg PO Q4H PRN PRN Reason: Cough Bisacodyl (Dulcolax) 10 mg IN DAILYPRN PRN PRN Reason: Constipation Clonidine HCl (Catapres) 0.1 mg PO Q4H PRN PRN Reason: Systolic BP > 180 Cyclobenzaprine HCl (Flexeril) 10 mg PO TID PRN PRN Reason: Muscle Spasm Last Admin: 06/22/17 13:00 Dose: 10 mg Diphenhydramine HCl (Benadryl) 25 mg PO Q4H PRN PRN Reason: Itching Docusate Sodium (Colace) 100 mg PO BID [facility] Last Admin: 06/23/17 08:02 Dose: Not Given Enoxaparin Sodium (Lovenox) 40 mg SC 09 [facility] Last Admin: 06/23/17 08:06 Dose: Not Given Famotidine (Pepcid) 20 mg PO BID [facility] Last Admin: 06/23/17 08:01 Dose: 20 mg Guaifenesin (Robitussin Sf) 200 mg PO Q4H PRN PRN Reason: Cough Guaifenesin (Mucinex) 600 mg PO Q12HR [facility] Last Admin: 06/23/17 08:01 Dose: 600 mg Guaifenesin/Dextromethorphan (Robitussin Dm) 15 ml PO Q4H PRN PRN Reason: Cough Hydralazine HCl (Apresoline) 10 mg SLOW IVP Q4H PRN PRN Reason: Systolic BP > 180 Levofloxacin (Levaquin) 500 mg PO 06 [facility] Last Admin: 06/23/17 05:45 Dose: 500 mg Loperamide HCl (Imodium) 2 mg PO PRN PRN PRN Reason: Diarrhea/Loose Stools Loratadine (Claritin) 10 mg PO DAILYPRN PRN PRN Reason: Sinus Symptoms Magnesium Hydroxide (Milk Of Magnesium) 30 ml PO DAILYPRN PRN PRN Reason: Constipation Methylprednisolone Sodium Succinate (Solu-Medrol) 20 mg IVP Q8HR [facility] Last Admin: 06/23/17 05:44 Dose: 20 mg Mineral Oil/White Petrolatum (Eucerin Cream) 0 gm TOP BIDPRN PRN PRN Reason: Dry Skin Mometasone Furoate/Formoterol Fumar (Dulera 200 Mcg/5 Mcg Inhaler) 2 puff INH BID-RT [facility] Last Admin: 06/23/17 09:10 Dose: Not Given Nicotine (Nicoderm Patch) 14 mg TD Q24HR [facility] Last Admin: 06/23/17 05:45 Dose: Not Given Ondansetron HCl (Zofran Odt) 4 mg PO Q6H PRN PRN Reason: Nausea/Vomiting Ondansetron HCl (Zofran) 4 mg IVP Q6H PRN PRN Reason: Nausea/Vomiting Last Admin: 06/20/17 00:06 Dose: 4 mg Phenol (Chloraseptic [place] 180 Ml Bot) 0 ml PO PRN PRN PRN Reason: Sore Throat Last Admin: 06/19/17 14:24 Dose: 2 sprays Potassium Chloride (K-Dur) 40 meq PO QAM-WM [facility] Last Admin: 06/23/17 08:00 Dose: 40 meq Senna (Senokot) 2 tab PO HSPRN PRN PRN Reason: Constipation Sodium Chloride ([place] Nasal [place] 0.65%) 0 ml EA NARE QIDPRN PRN PRN Reason: Nasal Congestion Sodium Chloride (Flush - Normal Saline) 10 ml IVF Q12HR [facility] Last Admin: 06/23/17 08:03 Dose: 10 ml Sodium Chloride (Flush - Normal Saline) 10 ml IVF PRN PRN PRN Reason: Saline Flush Last Admin: 06/20/17 05:46 Dose: 10 ml Temazepam (Restoril) 15 mg PO HSPRN PRN PRN Reason: Insomnia
--- NOTE | 2017-06-23 13:37 | DIS ---
DATE OF ADMISSION: 06/18/2017 DATE OF DISCHARGE: 06/23/2017 PRIMARY CARE PHYSICIAN: [facility] call admission. DISCHARGE DISPOSITION: Home. PRIMARY DISCHARGE DIAGNOSES: Chronic obstructive pulmonary disease exacerbation, hypokalemia, lacti c acidosis, neck pain. SECONDARY DISCHARGE DIAGNOSES: Chronic low back pain, medical noncompliance, ongoing tobacco abuse disorder, chronic obstructive pulmonary disease. PRIMARY PROCEDURE/OPERATION: None. RADIOLOGICAL INVESTIGATION: Neck x-ray was normal. Chest x-ray was normal. SIGNIFICANT LABS: Hemoglobin 13.8, INR 1.0. Sodium 138, creatinine 0.90, lactic acid 2.0. Urinaly sis unremarkable. Blood cultures negative. Respiratory culture negative. Influenza negative. DISCHARGE MEDICATIONS: The patient is given tapering doses of prednisone, Levaquin for 5 days, Muci nex for 5 days, Dulera 2 puffs inhalation b.i.d., albuterol and Atrovent nebulization every 6 hourly , Flexeril t.i.d. p.r.n., Tessalon p.r.n., Tylenol #3 p.r.n. CONTRAINDICATIONS: None. CODE STATUS: FULL CODE. INPATIENT CONSULTANTS: None. ALLERGIES: ASPIRIN, PENICILLIN. DISCHARGE PLAN: Post hospital, the patient will follow up with primary care physician. HOSPITAL COURSE: A 46-year-old female with the above-mentioned medical problem, who was admitted fo r COPD exacerbation. The patient was admitted by Dr. Daniels. Please see his H\T\P for further details. This patient is extremely noncompliant. She was smoking going outside all the time even day #1 after admission, she was keep complaining of low back pain, neck pain while in hospital. We were giving her DuoNeb therapy, Dulera, Mucinex, empiric antibiotic therapy with doxycycline and sub sequently antibiotic therapy was changed to Levaquin because of suspected allergic reaction with dox ycycline. On discharge, we changed to tapering doses of prednisone. This patient is an extremely h igh risk for recurrent admission because of her noncompliant behavior. At this point, she is on gerry m air. She is hemodynamically stable and we sent all new medication to her pharmacy today again. Megan marisa is seen and examined at bedside today. Please see my progress note from today for further de tails.
== END 2017-06-23 13:58 | disposition home or self-care (01) | DRG 191 ==
LOC: ERS 16:34 → T4-B 19:12
PROVIDERS: ADMIT Internal Medicine; ATTEND Internal Medicine
DX: J44.1 Chronic obstructive pulmonary disease with (acute) exacerbation (principal); E87.2 Acidosis; E87.6 Hypokalemia; F17.210 Nicotine dependence, cigarettes, uncomplicated; Z91.14 Patient's other noncompliance with medication regimen; R09.02 Hypoxemia; M54.2 Cervicalgia; M54.5 Low back pain; T78.40XA Allergy, unspecified, initial encounter; T36.4X5A Adverse effect of tetracyclines, initial encounter; Z86.73 Personal history of transient ischemic attack (TIA), and cerebral infarction without residual deficits
CPT/HCPCS: 36415; 71010; 72050; 80048; 80053; 81003; 81015; 82553; 82805; 83605; 83690; 83880; 84484; 85025; 85610; 85730; 87040; 87070; 87149; 87205; 93005; 94640; 96360; 96365; 96367; 96375; A4216; J1100; J1650; J1956; J2405; J2920; J3475; J7611; J7620; Q0162

== ENCOUNTER 2017-08-23 08:45 | Emergency (ER) | payer OTHER, SELFPAY ==
[2017-08-23] MEDS ORDERED: Magnesium Sulfate 2 GM/100 ML BAG ONE (09:00)
[2017-08-23] MEDS ORDERED: methylPREDNISolone Sod Succ/PF 125 MG/2 ML VIAL ONE (09:00)
[2017-08-23] MEDS ORDERED: Water For Inject, Bacteriostat 30 ML ONE (09:00)
[2017-08-23 09:14] LABS: #Basophils 0.1 thou/uL (0.0-0.2); #Eosinphils 0.1 thou/uL (0.0-0.7); #Lymphocytes 2.6 thou/uL (1.20-3.40); #Monocytes 0.4 thou/uL (0.11-0.59); #Neutrophils 4.3 thou/uL (1.40-6.50); %Eosinophils 0.9 % (0.0-10.0); %Lymphocytes 34.5 % (21.0-51.0); %Monocytes 5.8 % (0.0-10.0); Hematocrit 43.9 % (36.0-47.0); Mean Platelet Volume 7.1 fL (7.4-10.4); Red Blood Cell (RBC) Count 4.48 mill/uL (4.20-5.40); White Blood Cell (WBC) Count 7.4 thou/uL (4.8-10.8)
[2017-08-23 09:37] LABS: ALT (SGPT) Less than 7 U/L (8-55); AST (SGOT) 12 U/L (5-34); Alkaline Phosphatase 69 U/L (40-150); Anion Gap 14 mmol/L (10-20); BUN (Urea Nitrogen) 8 mg/dL (7.0-18.7); Bilirubin, Total 0.4 mg/dL (0.2-1.2); CK (CPK) 105 U/L (29-168); Calc. Creatinine Clearance 0 mL/min (70-130); Calcium 9.5 mg/dL (7.8-10.44); Carbon Dioxide 25 mmol/L (22-29); Chloride 104 mmol/L (98-107); Estimated GFR-MDRD 65; Globulin 2.9 g/dL (2.4-3.5); Protein, Total 7.2 g/dL (6.0-8.3)
--- NOTE | 2017-08-23 09:39 | RAD ---
PORTABLE UPRIGHT FRONTAL CHEST RADIOGRAPH: DATE: 08/23/17. COMPARISON: 06/18/17. History Productive cough with shortness of breath. FINDINGS: No pneumothorax, pleural fluid, focal consolidation, or alveolar edema. Heart and mediastinal contou rs within normal limits. IMPRESSION: No acute findings. POS: [facility]
[2017-08-23 09:40] LABS: Troponin I Less than 0.010 ng/mL (< 0.028)
== END 2017-08-23 10:39 | disposition home or self-care (01) ==
LOC: ERS 08:45
DX: J44.1 Chronic obstructive pulmonary disease with (acute) exacerbation (principal); I25.2 Old myocardial infarction; F31.9 Bipolar disorder, unspecified; F17.210 Nicotine dependence, cigarettes, uncomplicated; Z86.73 Personal history of transient ischemic attack (TIA), and cerebral infarction without residual deficits
CPT/HCPCS: 36415; 71010; 80053; 82550; 82553; 83880; 84484; 85025; 93005; 96365; 96375; 99406; J2930; J3475

== ENCOUNTER 2017-10-13 14:32 | Observation (INO) | payer OTHER, SELFPAY ==
--- NOTE | 2017-10-13 15:12 | RAD ---
TWO VIEWS OF THE CHEST: COMPARISON: 06/17/17. HISTORY: Cough. FINDINGS: Two views of the chest show normal sized cardiomediastinal silhouette. There is no evidence of consol idation, mass, or pleural effusion. The bones are unremarkable. IMPRESSION: No evidence of acute cardiopulmonary disease. POS: [facility]
--- NOTE | 2017-10-13 15:24 | CT ---
CT ABDOMEN AND PELVIS NONCONTRAST: HISTORY: Right flank pain. COMPARISON: 06/13/13. FINDINGS: Each renal collecting system, ureter, and the urinary bladder are decompressed without stone evident. Lack of contrast limits evaluation for other abnormalities. The gallbladder is surgically absent. C alcification is present within the arterial structures. Dominant follicle of the right ovary measure s up to 2.3 cm. IMPRESSION: 1. No CT evidence of urinary tract obstruction or calcification. 2. Atherosclerosis. POS: [facility]
[2017-10-13] MEDS ORDERED: Ondansetron HCl/PF 4 MG/2 ML Vial ONE (15:25)
[2017-10-13] MEDS ORDERED: methylPREDNISolone Sod Succ/PF 125 MG/2 ML VIAL ONE (15:25)
[2017-10-13] MEDS ORDERED: Morphine 4 MG/ML Carpuject ONE (15:25)
[2017-10-13] MEDS ORDERED: Water For Inject, Bacteriostat 30 ML ONE (15:33)
[2017-10-13 16:03] LABS: #Basophils 0.1 thou/uL (0.0-0.2); #Eosinphils 0.1 thou/uL (0.0-0.7); #Lymphocytes 2.7 thou/uL (1.20-3.40); #Monocytes 0.6 thou/uL (0.11-0.59); %Basophils 1.3 % (0.0-1.0); %Eosinophils 0.7 % (0.0-10.0); %Lymphocytes 36.5 % (21.0-51.0); %Monocytes 7.5 % (0.0-10.0); Hemoglobin 13.6 g/dL (12.0-16.0); Mean Corpuscular HGB CONC 33.5 g/dL (32.0-36.0); Mean Corpuscular Hemoglobin 32.6 pg (27.0-31.0); Mean Corpuscular Volume 97.4 fl (81.0-99.0); Mean Platelet Volume 6.6 fL (7.4-10.4); Platelet Count 239 thou/uL (130-400); RBC Distribution Width 12.3 % (11.5-14.5); Red Blood Cell (RBC) Count 4.16 mill/uL (4.20-5.40); White Blood Cell (WBC) Count 7.3 thou/uL (4.8-10.8)
[2017-10-13 16:11] LABS: Bilirubin Negative (Negative); Blood, Urine Negative (Negative); Clarity CLEAR (Clear); Glucose, Urine (Dipstick) Negative (Negative); Leukocyte Trace (Negative); Nitrite Negative (Negative); Protein, Urine (Dipstick) Negative (Neg-Trace); Specific Gravity, Urine 1.012 (1.002-1.036); Urobilinogen 0.2 mg/dL (0.2-1.0); pH, Urine 7.5 (5.0-9.0)
[2017-10-13 16:13] LABS: Bacteria/HPF None Seen HPF (None Seen); Hyaline Casts/LPF 0-3 HYALINE CAST LPF (0-3 Hyaline); Pathc Cast-AUWi Flag 0.13 (0-2.49); Squamous Epithelial 0-3 HPF (0-3); WBC/HPF 0-3 HPF (0-3)
[2017-10-13 16:23] LABS: ALT (SGPT) 7 U/L (8-55); AST (SGOT) 11 U/L (5-34); Albumin 4.1 g/dL (3.5-5.0); Alkaline Phosphatase 72 U/L (40-150); Anion Gap 14 mmol/L (10-20); BUN (Urea Nitrogen) 11 mg/dL (7.0-18.7); Bilirubin, Total 0.3 mg/dL (0.2-1.2); Calc. Creatinine Clearance 0 mL/min (70-130); Calcium 9.4 mg/dL (7.8-10.44); Carbon Dioxide 26 mmol/L (22-29); Chloride 103 mmol/L (98-107); Estimated GFR-MDRD 69; Globulin 2.5 g/dL (2.4-3.5); Glucose 112 mg/dL (70-105); Potassium 3.5 mmol/L (3.5-5.1); Protein, Total 6.6 g/dL (6.0-8.3); Sodium 139 mmol/L (136-145)
--- NOTE | 2017-10-13 16:39 | ULT ---
PELVIC ULTRASOUND: Comparison: None. History: Dominant right ovarian follicle. Technique: Multiplanar grayscale and color doppler images were obtained in a transabdominal and trans vaginal pelvic ultrasound. Spectral analysis of the doppler waveforms of the ovaries were performed. FINDINGS: There is a small hypoechoic region in the anterior aspect of the uterus measuring less than 1 cm in s ize which may represent a small fibroid. Endometrial stripe is normal in thickness measuring 1 mm. There are follicles seen in both ovaries. The larger follicle is seen on the right measuring 2.2 cm i n greatest dimension. A follicle in the left ovary measures 1.1 cm in greatest dimension. IMPRESSION: Possible small uterine fibroid; otherwise unremarkable exam. POS: [facility]
[2017-10-13 18:19] LABS: Base Excess-Venous 0.4 mmol/L (-30.0-30.0); Bicarbonate (HCO3v) 24.7 mmol/L (1.0-85.0); CO2 Tension (PvCO2) 37.9 mmHg (41.0-51.0); Calcium, Ionized 1.02 mmol/L (1.12-1.32); O2 Tension (PvO2) 66.5 mmHg (35.0-45.0); Potassium 4.3 mmol/L (3.4-4.7); T. Carbon Dioxide 25.9 mmol/L (1.0-85.0); pH (Venous) 7.422 (7.35-7.45); vO2 Saturation-calc 93.3 % (0.0-100.0)
[2017-10-13] MEDS ORDERED: Magnesium 2 GM/NS 0.9% 100 ML 2 GM in Premix Bag 1 BAG IVPB SCH (18:45)
[2017-10-13] MEDS ORDERED: Magnesium Sulfate 2 GM/100 ML BAG ONE (18:53)
--- NOTE | 2017-10-13 19:48 | HP ---
CHIEF COMPLAINT: Shortness of breath. HISTORY OF PRESENT ILLNESS: This is a 47-year-old young white female with a known history of COPD, b ut presented with a complaint of cough, worsening shortness of breath, and increased production of sp utum with green colored. Her symptoms started a week ago and is progressively getting worse to the p oint that today she was not able to breathe and was bringing up thick sputum. When she arrived in e ER, she was saturating 78% at room air. She was started on nasal cannula and was started on DuoNeb treatments. The patient did respond to the DuoNebs. Her saturations did come out, but she was very tachycardic and was very tachypneic, and was unable to walk short distances without feeling extremel y short of breath. The patient has a known history of smoking. She quit smoking a year ago and sinc e then she has not smoked, but she has a roommate who does smoke. She believes it is because of the weather and her roommate smoking, passive smoking is causing her exacerbation. She denied having any chest pain at this time. No nausea, no vomiting, no diarrhea, no constipation. No history of fever. No history of any sick contacts. PAST MEDICAL HISTORY: COPD. PAST SURGICAL HISTORY: 1. Tubal ligation, bilateral. 2. Cholecystectomy. 3. Right knee surgery. SOCIAL HISTORY: The patient is a known smoker, smoked, but quit smoking 1 year ago. No history of a lcohol, no history of illicit drug use. FAMILY HISTORY: No significant family history of coronary artery disease, but her father was killed in an accident. REVIEW OF SYSTEMS: All 12 systems are reviewed with the patient thoroughly and the following complet e review of systems was negative, unless otherwise mentioned in the HPI or below: Constitutional: Weight loss or gain, sense of well-being, ability to conduct usual activities, exerc ise tolerance. Skin/Breast: Rash, itching, changes in hair growth or loss, nail changes, breast lumps, tenderness, swelling, nipple discharge. Eyes: Vision, double vision, tearing, blind spots, pain. ENT/Mouth: Headaches (location, time of onset, duration, precipitating factors), vertigo, lightheade dness, injury. Vision, double vision, tearing, blind spots, pain, nose bleeding, colds, obstruction, discharge, dental difficulties, gingival bleeding, dentures, neck stiffness, pain, tenderness, masses in thyroid or other areas. Cardiovascular: Precordial pain, substernal distress, palpitations, syncope, dyspnea on exertion, or thopnea, nocturnal paroxysmal dyspnea, edema, cyanosis, hypertension, heart murmurs, varicosities, ph lebitis, claudication. Respiratory: Pain, shortness of breath, wheezing, stridor, cough, hemoptysis, fever or night sweats Gastrointestinal: Poor appetite, dysphagia, indigestion, abdominal pain, heartburn, eructation, naus ea, vomiting, hematemesis, jaundice, constipation, or diarrhea, abnormal stools (ludy-colored, tarry, bloody, greasy, foul smelling), flatulence, hemorrhoids, recent changes in bowel habits. Genitourinary: Urgency, frequency, dysuria, nocturia, hematuria, polyuria, oliguria, unusual (or jesse nge in) color of urine, stones, hesitancy, change in size of stream, dribbling, acute retention or in continence, libido, potency. Musculoskeletal: Pain, swelling, redness or heat of muscles or joints, limitation of motion, muscula r weakness, atrophy, cramps. Neurologic/Psychiatric: Convulsions, paralyses, tremor, incoordination, paresthesias, difficulties w ith memory of speech, sensory or motor disturbances, or muscular coordination (ataxia, tremor), emoti onal problems, anxiety, depression, previous psychiatric care, unusual perceptions, hallucinations. Allergy/Immunologic: Skin rash, anemia, bleeding tendency, polydipsia, polyuria, intolerance to heat or cold. HOME MEDICATIONS: The patient is on: 1. Albuterol sulfate. 2. Benzonatate 100 mg p.o. 3. Cyclobenzaprine. 4. Famotidine 20 mg p.o. b.i.d. 5. Guaifenesin. 6. Ipratropium 2.5 mg nebulizer q.6 hours. 7. Levofloxacin. 8. Mometasone. 9. Prednisone 20 mg p.o. in the morning. ALLERGIES: ASPIRIN and PENICILLIN. PHYSICAL EXAMINATION: VITAL SIGNS: Blood pressures are 130/80, heart rate is 88, respiratory rate is 22, saturation is 93% on 2 liters. GENERAL: The patient is moderately built and moderately nourished. She appears to be in acute distr ess at this time. She is seen sitting in the bed at 45 degrees inclination. HEENT: Atraumatic, normocephalic. PERRLA. Extraocular movements are intact. Oral mucosa is pink a nd moist. CARDIOVASCULAR: S1, S2 normal. No murmurs, rubs, or gallops. LUNGS: Bilateral air entry was equal. No wheezing, no crackles. ABDOMEN: Soft, nontender. No guarding, no rebound tenderness. Bowel sounds are normal. MUSCULOSKELETAL: No calf tenderness. No pedal edema. No joint tenderness. No joint swelling. SKIN: No cyanosis, no erythema, no rash, no pallor. NEUROLOGIC: Cranial nerve examination II through XII intact. No focal deficits were noted. LABORATORY DATA: WBC 7.3, hemoglobin 13.6, hematocrit 40.6, platelets are 239. Sodium 139, potassiu m 3.5, chloride 103, bicarbonate 26, BUN 11, creatinine 0.88. ASSESSMENT: 1. Acute hypoxic respiratory failure. 2. Acute chronic obstructive pulmonary disease exacerbation. 3. Moderate dehydration. PLAN: 1. Plan is to admit this patient. We will start the patient on IV Solu-Medrol at 40 mg IV q.6 hours and we will closely monitor and will continue the patient DuoNeb every 4 hours and with albuterol ne bs every 2 hours as needed. We will closely monitor for any decompensation. I will repeat the chest x-ray if the patient has any worsening shortness of breath. 2. The patient is on nasal cannula at this time and she was never on oxygen. We will try to wean he r off the oxygen to keep the saturations more than 92%. 3. We will consult Pulmonary if the patient decompensates or if shortness of breath get worsen. 4. The patient is a young 47-year-old. I would not expect her to be in the hospital for 2 days at t his time. 5. Deep venous thrombosis prophylaxis. Lovenox 40 mg subcu daily. I spent 75 minutes with this patient.
[2017-10-13] MEDS ORDERED: HYDROcodone/Acetaminophen 5/325 mg Tablet PO PRN (22:06)
[2017-10-13] MEDS ORDERED: Acetaminophen 325 MG TAB PO PRN (22:06)
[2017-10-13] MEDS ORDERED: Cyclobenzaprine 10 MG TAB PO PRN (22:06)
[2017-10-13] MEDS ORDERED: Benzonatate 100 MG CAP PO PRN (22:06)
[2017-10-13] MEDS ORDERED: Ondansetron HCl/PF 4 MG/2 ML Vial IVP PRN (22:06)
[2017-10-13] MEDS ORDERED: Albuterol Sulfate 2.5 mg/3 ml Neb NEB PRN (22:06)
[2017-10-13 22:31] VITALS: BMI 21.9
[2017-10-13] MEDS: HYDROcodone/Acetaminophen 7.5/325 mg Tablet PO PRN (23:35)
[2017-10-13] MEDS: Ipratropium Bromide 2.5 ml Neb NEB SCH (23:57)
[2017-10-14] MEDS: Ipratropium Bromide 2.5 ml Neb NEB SCH ×4 (00:31→13:49)
[2017-10-14 05:18] LABS: #Lymphocytes 0.8 thou/uL (1.20-3.40); #Monocytes 0.1 thou/uL (0.11-0.59); %Basophils 0.2 % (0.0-1.0); %Lymphocytes 8.5 % (21.0-51.0); %Monocytes 0.7 % (0.0-10.0); %Neutrophils 90.6 % (42.0-75.0); Hemoglobin 12.7 g/dL (12.0-16.0); Mean Corpuscular HGB CONC 34.1 g/dL (32.0-36.0); Mean Corpuscular Hemoglobin 33.1 pg (27.0-31.0); Mean Corpuscular Volume 97.1 fl (81.0-99.0); Mean Platelet Volume 7.2 fL (7.4-10.4); Platelet Count 240 thou/uL (130-400); RBC Distribution Width 12.3 % (11.5-14.5); Red Blood Cell (RBC) Count 3.82 mill/uL (4.20-5.40); White Blood Cell (WBC) Count 8.8 thou/uL (4.8-10.8)
[2017-10-14 05:27] LABS: Anion Gap 15 mmol/L (10-20); BUN (Urea Nitrogen) 9 mg/dL (7.0-18.7); Calc. Creatinine Clearance 71 mL/min (70-130); Calcium 9.3 mg/dL (7.8-10.44); Carbon Dioxide 22 mmol/L (22-29); Chloride 105 mmol/L (98-107); Estimated GFR-MDRD 73; Glucose 180 mg/dL (70-105); Potassium 4.3 mmol/L (3.5-5.1); Sodium 138 mmol/L (136-145)
[2017-10-14 05:43] VITALS: TEMP 98
[2017-10-14] MEDS ORDERED: guaiFENesin ER 600 MG TAB PO SCH (09:00)
[2017-10-14] MEDS ORDERED: Docusate 100 MG CAP PO SCH (09:00)
[2017-10-14] MEDS ORDERED: Famotidine/PF 20 mg/2ml Vial SLOW IVP SCH (09:00)
[2017-10-14] MEDS ORDERED: Enoxaparin Sodium 40 MG/0.4 ML SYRINGE SC SCH (09:00)
[2017-10-14 09:22] VITALS: BP 122/69
[2017-10-14] MEDS: HYDROcodone/Acetaminophen 7.5/325 mg Tablet PO PRN (11:47)
--- NOTE | 2017-10-14 12:55 | PDOC.PN ---
- Subjective Encounter Start Date: 10/14/17 Encounter Start Time: 10:45 Subjective: no sob, feels better - Objective Resuscitation Status: Resuscitation Status FULL:Full Resuscitation MAR Reviewed: Yes Vital Signs & Weight: Vital Signs (12 hours) Temp Pulse Resp BP BP Pulse Ox 10/14/17 10:13 83 16 94 L 10/14/17 08:00 98.0 F 83 18 122/69 133/69 94 L 10/14/17 07:08 87 14 95 10/14/17 04:42 98.0 F 87 16 122/72 96 Weight Weight 120 lb I&O: 10/13/17 10/14/17 10/15/17 06:59 06:59 06:59 Intake Total 151 Balance 151 Result Diagrams: 10/14/17 04:09 10/14/17 04:09 Phys Exam - Physical Examination HEENT: PERRLA, moist MMs Neck: no JVD, supple Respiratory: no wheezing, no rales rhonchi+ Cardiovascular: RRR, no significant murmur Gastrointestinal: soft, non-tender, positive bowel sounds Musculoskeletal: no edema, pulses present Neurological: non-focal, moves all 4 limbs Psychiatric: A&O x 3 Dx/Plan (1) COPD exacerbation Code(s): J44.1 - CHRONIC OBSTRUCTIVE PULMONARY DISEASE W (ACUTE) EXACERBATION Status: Acute (2) Medical non-compliance Code(s): Z91.19 - PATIENT'S NONCOMPLIANCE W OTH MEDICAL TREATMENT AND REGIMEN Status: Chronic (3) Tobacco abuse Code(s): Z72.0 - TOBACCO USE Status: Chronic - Plan hemostable -: dc pt home -: to continue steroid taper -: counselled reg tob use cessation * .
--- NOTE | 2017-10-14 21:49 | DIS ---
DATE OF ADMISSION: 10/13/2017 DATE OF DISCHARGE: 10/14/2017 DISCHARGE DISPOSITION: To home. PRIMARY DISCHARGE DIAGNOSES: Acute chronic obstructive pulmonary disease exacerbation with noncompli ance with medication, ongoing tobacco abuse. PROCEDURES DONE DURING HOSPITALIZATION: The patient has had chest x-ray done, which showed no acute cardiopulmonary abnormalities. CT of the abdomen and pelvis without contrast showed no evidence of u rinary tract obstruction or calcification. There is incidental finding of a dominant follicle in the right ovary measuring up to 2.3 cm. Pelvic ultrasound done showed possible small uterine fibroid, o therwise was unremarkable. Blood cultures x2, no growth. Urine culture, no growth. H and H 12 and 37. White count of 8 with platelet count of 240. DISCHARGE MEDICATIONS: DuoNeb q.6 hourly, prednisone tapering dose starting at 10 mg twice daily ove r the course of 10 days. ALLERGIES: ASPIRIN and PENICILLIN. DISCHARGE PLAN: Patient is to follow up with primary care physician in 1 week. BRIEF COURSE DURING HOSPITALIZATION: Patient initially came to ER with complaints of shortness of br eath. She is known to our service for recurrent hospitalizations for COPD exacerbation with noncompl iance with medications and ongoing tobacco abuse. On arrival in the ER, the patient had saturations of 78% on room air. She was placed on nasal cannula and DuoNeb treatments, which promptly brought he r saturations up. She was on steroids and empiric antibiotics. She has remained hemodynamically sta ble, ambulating well, and was off oxygen this afternoon. Also, in fact the patient has been going ou t of the floor to smoke per staff. In view of her resolving COPD exacerbation, patient was placed on steroid taper along with her DuoNeb. She was counseled with regard to tobacco use cessation. She i s otherwise hemodynamically stable and will be shortly discharged home. Please see a [id number] do cumentation for the day of discharge on [facility].
== END 2017-10-14 14:20 | disposition home or self-care (01) ==
LOC: ERS 14:32 → T4-B 21:59
PROVIDERS: ADMIT Family Medicine; ATTEND Family Medicine
DX: J44.1 Chronic obstructive pulmonary disease with (acute) exacerbation (principal); E86.0 Dehydration; J96.01 Acute respiratory failure with hypoxia; Z91.14 Patient's other noncompliance with medication regimen; Z79.899 Other long term (current) drug therapy; Z88.6 Allergy status to analgesic agent; Z88.0 Allergy status to penicillin; Z77.22 Contact with and (suspected) exposure to environmental tobacco smoke (acute) (chronic); Z98.51 Tubal ligation status; Z90.49 Acquired absence of other specified parts of digestive tract; Z98.890 Other specified postprocedural states; Z87.891 Personal history of nicotine dependence
CPT/HCPCS: 36415; 71046; 74176; 76856; 80048; 80053; 81003; 81015; 82330; 82803; 85025; 87040; 87086; 94640; 96361; 96365; 96367; 96375; 96376; G0378; J1650; J1956; J2270; J2405; J2920; J2930; J3475; J7620; J7644; S0028

== ENCOUNTER 2017-11-07 09:52 | Inpatient (IN) | payer SELFPAY ==
--- NOTE | 2017-11-07 10:34 | RAD ---
PORTABLE CHEST 1 VIEW: Date: 11/07/17 Time: 1020 hours HISTORY: Dyspnea. FINDINGS: Comparison made with exam of 10/13/17. The heart size is normal. The lungs are well expanded without focal areas of consolidation, pneumotho rax, or pleural effusions. IMPRESSION: No radiographic evidence of acute cardiopulmonary process. POS: [facility]
[2017-11-07 10:36] LABS: #Eosinphils 0.1 thou/uL (0.0-0.7); #Lymphocytes 1.6 thou/uL (1.20-3.40); #Monocytes 0.9 thou/uL (0.11-0.59); #Neutrophils 5.3 thou/uL (1.40-6.50); %Basophils 0.6 % (0.0-1.0); %Lymphocytes 19.7 % (21.0-51.0); %Monocytes 11.6 % (0.0-10.0); %Neutrophils 67.1 % (42.0-75.0); Hemoglobin 14.5 g/dL (12.0-16.0); Mean Corpuscular HGB CONC 33.5 g/dL (32.0-36.0); Mean Corpuscular Hemoglobin 32.1 pg (27.0-31.0); Mean Corpuscular Volume 95.9 fl (81.0-99.0); Mean Platelet Volume 7.1 fL (7.4-10.4); Platelet Count 245 thou/uL (130-400); RBC Distribution Width 12.1 % (11.5-14.5); Red Blood Cell (RBC) Count 4.52 mill/uL (4.20-5.40); White Blood Cell (WBC) Count 7.9 thou/uL (4.8-10.8)
[2017-11-07] MEDS ORDERED: methylPREDNISolone Sod Succ/PF 125 MG/2 ML VIAL ONE (10:51)
[2017-11-07 11:05] LABS: ALT (SGPT) 8 U/L (8-55); AST (SGOT) 11 U/L (5-34); Albumin 4.5 g/dL (3.5-5.0); Alkaline Phosphatase 76 U/L (40-150); Anion Gap 12 mmol/L (10-20); BUN (Urea Nitrogen) 6 mg/dL (7.0-18.7); Bilirubin, Total 0.4 mg/dL (0.2-1.2); Calc. Creatinine Clearance 0 mL/min (70-130); Calcium 9.6 mg/dL (7.8-10.44); Carbon Dioxide 26 mmol/L (22-29); Chloride 103 mmol/L (98-107); Estimated GFR-MDRD 63; Globulin 2.9 g/dL (2.4-3.5); Glucose 109 mg/dL (70-105); Potassium 3.9 mmol/L (3.5-5.1); Protein, Total 7.4 g/dL (6.0-8.3); Sodium 137 mmol/L (136-145)
[2017-11-07] MEDS ORDERED: Acetaminophen 500 MG TAB ONE (11:22)
[2017-11-07 12:50] LABS: CKMB 2.2 ng/mL (0-6.6); Troponin I Less than 0.010 ng/mL (< 0.028)
[2017-11-07] MEDS ORDERED: Ondansetron ODT 4 MG TAB PO PRN (13:05)
[2017-11-07] MEDS ORDERED: Acetaminophen 325 MG TAB PO PRN (13:05)
[2017-11-07] MEDS ORDERED: Ondansetron HCl/PF 4 MG/2 ML Vial IVP PRN (13:05)
[2017-11-07] MEDS: Heparin 5,000 UNITS/ML VIAL SC SCH ×2 (16:57→18:52)
--- NOTE | 2017-11-07 17:56 | HP ---
PRIMARY CARE PHYSICIAN: None. PRESENTING COMPLAINT: Shortness of breath. HISTORY OF PRESENT ILLNESS: A 47-year-old female with a known history of COPD and chronic respiratory failure on supplementary oxygen at home who presents to the hospital with a 4-day history of progressively worsening shortness of breath associated with intermittent fevers and nonproductive cough. She was using her nebulizers, but without success. She reports she has not used her home oxygen for the past 4 days as she had no power in her house. Due to abdominal pain and the power bill, she has been living in a friend's house. She denies chest pain, palpitations, PND, orthopnea, or lower extremity edema. At the emergency room, labs were largely unremarkable. She was saturating at 88 % on room air and was immediately started on oxygen therapy, nebulizer treatments. She also received IV levofloxacin for presumed pneumonia. A chest x-ray was also done, which revealed no radiographic evidence of acute cardiopulmonary process. She had poor response to the initial nebulizer treatment and so decision was made to admit her for further care. PAST MEDICAL HISTORY: COPD. PAST SURGICAL HISTORY: Tubal ligation, bilateral cholecystectomy, right knee surgery. SOCIAL HISTORY: Smokes cigarette, but denies any history of alcohol or illicit drug use. FAMILY HISTORY: Family history reviewed and not pertinent. No significant history of CAD, diabetes. REVIEW OF SYSTEMS: Constitutional: Positive for intermittent fevers, otherwise negative. Skin: Denies rashes or skin lesions. HEENT: Denies any Changes in vision, nasal discharge or congestion. Cardiovascular: Negative. Check HPI. Respiratory: Per HPI. Gastrointestinal: Denies nausea, vomiting, abdominal pain, diarrhea, constipation. Genitourinary: Denies dysuria, urgency , frequency or hematuria. Immunology/Allergy: Negative. Hematology: Negative. Neurologic: Denies dizziness, loss of consciousness, headaches. Psychiatric: Denies HI, SI or depressed mood. PHYSICAL EXAMINATION: VITAL SIGNS: Stable. GENERAL: Not in acute distress, sitting comfortably in bed. HEENT: Normocephalic, atraumatic. Oral mucosa moist. PERRLA. EOMI. NECK: Supple, full range of movements. CARDIOVASCULAR: S1, S2 only. No murmurs, rubs or gallops. RESPIRATORY: Slightly tachypneic with mild wheezing bilaterally. No rales appreciated. ABDOMEN: Bowel sounds positive, nontender, nondistended. No hepatosplenomegaly. MUSCULOSKELETAL: No skeletal abnormalities, move extremities spontaneously. SKIN: Warm, dry, well-perfused. NEUROLOGIC: Alert and well oriented with no focal deficits. PSYCHIATRIC: Normal mood and affect. LABORATORY DATA: Largely unremarkable. IMAGING: Chest x-ray with no acute pulmonary disease. EKG, no signs of acute ischemia. ASSESSMENT AND PLAN: 1. Acute on chronic respiratory failure with hypoxia. Patient has a history of chronic respiratory failure, on supplemental oxygen at home, but has not been able to this or utilize it due to financial constraints. She has been started on bronchodilator therapy, oxygen supplementation and antibiotics. She will also be placed on parenteral steroids and her vital signs will be monitored. 2. Chronic obstructive pulmonary disease as above. 3. CODE STATUS: The patient wishes to remain FULL CODE. 4. Deep venous thrombosis prophylaxis, subcutaneous heparin 3 times a day. Total time of dictation, chart review and interview with the patient, 65 minutes. KENISHAD
[2017-11-07] MEDS: Albuterol Sulfate 2.5 mg/3 ml Neb NEB SCH ×3 (18:25→22:10)
[2017-11-08] MEDS: Albuterol Sulfate 2.5 mg/3 ml Neb NEB SCH ×6 (02:41→22:19)
[2017-11-08 05:51] LABS: #Lymphocytes 0.8 thou/uL (1.20-3.40); #Monocytes 0.3 thou/uL (0.11-0.59); #Neutrophils 8.5 thou/uL (1.40-6.50); %Basophils 0.2 % (0.0-1.0); %Eosinophils 0.1 % (0.0-10.0); %Lymphocytes 8.1 % (21.0-51.0); %Monocytes 2.9 % (0.0-10.0); %Neutrophils 88.8 % (42.0-75.0); Mean Corpuscular HGB CONC 33.6 g/dL (32.0-36.0); Mean Corpuscular Hemoglobin 32.8 pg (27.0-31.0); Mean Corpuscular Volume 97.6 fl (81.0-99.0); Mean Platelet Volume 7.3 fL (7.4-10.4); Platelet Count 246 thou/uL (130-400); RBC Distribution Width 11.9 % (11.5-14.5); Red Blood Cell (RBC) Count 4.27 mill/uL (4.20-5.40); White Blood Cell (WBC) Count 9.6 thou/uL (4.8-10.8)
[2017-11-08 06:32] LABS: Anion Gap 17 mmol/L (10-20); BUN (Urea Nitrogen) 13 mg/dL (7.0-18.7); Calc. Creatinine Clearance 0 mL/min (70-130); Calcium 10.1 mg/dL (7.8-10.44); Carbon Dioxide 23 mmol/L (22-29); Chloride 99 mmol/L (98-107); Estimated GFR-MDRD 55; Glucose 223 mg/dL (70-105); Potassium 3.7 mmol/L (3.5-5.1); Sodium 135 mmol/L (136-145)
[2017-11-08] MEDS: Heparin 5,000 UNITS/ML VIAL SC SCH ×3 (08:23→20:13)
[2017-11-08] MEDS ORDERED: Ibuprofen 600 MG TAB PO PRN (11:22)
[2017-11-08] MEDS ORDERED: HYDROcodone/Acetaminophen 5/325 mg Tablet PO SCH (11:30)
--- NOTE | 2017-11-08 12:42 | PDOC.PN ---
- Subjective Encounter Start Date: 11/08/17 Encounter Start Time: 12:45 Subjective: Reports still having difficulty breathing -: No acute events overnight. - Objective MAR Reviewed: Yes Vital Signs & Weight: Vital Signs (12 hours) Temp Pulse Resp BP Pulse Ox 11/08/17 12:19 98.1 F 91 18 103/59 L 93 L 11/08/17 10:20 88 18 94 L 11/08/17 08:00 98.2 F 88 18 105/64 11/08/17 07:49 98.2 F 88 20 105/64 94 L 11/08/17 06:19 76 20 96 11/08/17 04:00 98.3 F 80 18 111/71 92 L 11/08/17 02:46 93 L 11/08/17 02:41 20 I&O: 11/07/17 11/08/17 11/09/17 06:59 06:59 06:59 Intake Total 600 Balance 600 Result Diagrams: 11/08/17 04:58 11/08/17 04:58 Phys Exam - Physical Examination Constitutional: NAD HEENT: PERRLA, moist MMs, sclera anicteric Neck: supple, full ROM Respiratory: no wheezing, no rales, no rhonchi Cardiovascular: RRR, no significant murmur, no rub Musculoskeletal: no edema, pulses present Neurological: non-focal, moves all 4 limbs Psychiatric: normal affect, A&O x 3 Skin: no rash, cap refill <2 seconds Dx/Plan (1) Acute and chronic respiratory failure with hypoxia Code(s): J96.21 - ACUTE AND CHRONIC RESPIRATORY FAILURE WITH HYPOXIA Status: Acute Plan: Continue abx, nebs and O2 therapy Comment: Improving. On 2L O2 at home at baseline. (2) COPD exacerbation Code(s): J44.1 - CHRONIC OBSTRUCTIVE PULMONARY DISEASE W (ACUTE) EXACERBATION Status: Acute Plan: As above. (3) Tobacco abuse Code(s): Z72.0 - TOBACCO USE Status: Chronic Comment: Counselled on cessation. - Plan cont current plan of care, continue antibiotics, respiratory therapy, DVT proph w/heparin * . - Discharge Day Patient offered the following for tobacco cessation: nicotine replacement
[2017-11-08] MEDS: Ketorolac Tromethamine 30 MG/ML VIAL IVP PRN ×2 (12:55→20:19)
[2017-11-09] MEDS: Albuterol Sulfate 2.5 mg/3 ml Neb NEB SCH ×3 (02:51→10:48)
[2017-11-09] MEDS: Ketorolac Tromethamine 30 MG/ML VIAL IVP PRN ×2 (03:12→10:41)
[2017-11-09 06:46] LABS: Band 6 % (5-11); Eosinophils 1 % (0-10); Hemoglobin 12.3 g/dL (12.0-16.0); Lymphocytes 7 % (21-51); MDiff Complete? YES; Mean Corpuscular Hemoglobin 31.9 pg (27.0-31.0); Mean Corpuscular Volume 96.9 fl (81.0-99.0); Mean Platelet Volume 7.4 fL (7.4-10.4); Monocytes 3 % (0-10); Neutrophil 83 % (42-75); PLT Morphology Comment Appears Adequate; Platelet Count 253 thou/uL (130-400); RBC Morphology Normal; Red Blood Cell (RBC) Count 3.86 mill/uL (4.20-5.40); White Blood Cell (WBC) Count 18.3 thou/uL (4.8-10.8)
[2017-11-09] MEDS: Heparin 5,000 UNITS/ML VIAL SC SCH (08:23)
[2017-11-09 08:31] LABS: Chloride 98 mmol/L (98-107); Potassium 4.4 mmol/L (3.5-5.1); Sodium 133 mmol/L (136-145)
[2017-11-09 08:32] LABS: Calcium 9.3 mg/dL (7.8-10.44); Glucose 162 mg/dL (70-105)
[2017-11-09 08:34] LABS: Anion Gap 15 mmol/L (10-20); Carbon Dioxide 24 mmol/L (22-29)
[2017-11-09 08:36] LABS: Calc. Creatinine Clearance 0 mL/min (70-130); Estimated GFR-MDRD 59
[2017-11-09 08:37] LABS: BUN (Urea Nitrogen) 22 mg/dL (7.0-18.7)
[2017-11-09 09:01] VITALS: BP 97/59; TEMP 98.3
--- NOTE | 2017-11-09 23:05 | DIS ---
DATE OF ADMISSION: 11/07/2017 DATE OF DISCHARGE: 11/09/2017 DISCHARGE DIAGNOSES: Acute on chronic respiratory failure with hypoxia, chronic obstructive pulmonar y disease exacerbation. HOSPITAL COURSE: A 47-year-old female with a medical history of COPD on chronic respiratory failure on 2 liters of supplementary oxygen at home, presented to the emergency room with a 4-day history of progressively worsening shortness of breath, intermittent fevers and nonproductive cough. She report ed using home nebulizers without success. She also uses home albuterol inhalers with no improvement. She noted that she has not use home oxygen for at least 4 days due to no electricity at home, due t o nonpayment of bills. She denies chest pain, palpitations, PND, orthopnea, lower extremity edema. In the emergency room, labs were largely unremarkable. She was saturating at 88% on room air and was immediately started on oxygen therapy and nebulizer treatments. She also received parenteral steroi ds, IV levofloxacin for presumed pneumonia. Chest x-ray was also done, which revealed no radiographi c evidence of acute pulmonary process due to poor response to initial therapy. Decision was made to admit her for further care. HOSPITAL COURSE: She was continued on oxygen therapy, parenteral steroids, IV antibiotics, nebulizer treatments. She continued to improve with therapy and eventually was weaned down to her home oxygen requirements. She was discharged on her home nebulizer treatment, albuterol inhaler and also given a prescription for Symbicort to prevent further exacerbations. DISCHARGE MEDICATIONS: Albuterol sulfate nebulizer 0.63 mg nebs q.4 hours p.r.n., Symbicort 1 puff i nhaled b.i.d., Mucinex 600 mg b.i.d., levofloxacin 750 mg daily, prednisone 40 mg every morning. PHYSICAL EXAMINATION: The patient was examined on the day of discharge. VITAL SIGNS: 98.3 degrees Fahrenheit temperature, pulse 63, respiratory rate 20, oxygen saturation 9 9% on 2 liters oxygen via nasal cannula, blood pressure 97/59. CONSTITUTIONAL: Not in acute distress, speaking in full sentences. HEENT: PERRLA. Moist mucous membranes. Sclerae nonicteric. NECK: Supple with full range of movement. RESPIRATORY: No wheezing, rales, or rhonchi. Vesicular breath sounds bilaterally. CARDIOVASCULAR: Regular rate and rhythm. No murmurs, rubs, or gallops. MUSCULOSKELETAL: No edema. Pulses present. NEUROLOGIC: Nonfocal. Moves all limbs spontaneously. PSYCHIATRIC: Normal mood and affect. Alert and oriented to time, place, and person. SKIN: No rash or lesions. Warm, dry, well-perfused. LABORATORY DATA: WBC 18.3 (steroid induced), hemoglobin 12.3, hematocrit 37.4, platelets 253. Sodiu m 133, potassium 4.4, chloride 98, carbon dioxide 24, anion gap 15, BUN 22, creatinine 1, glucose 162 , calcium 9.3. IMAGING: Chest x-ray 11/07/2017, no acute cardiopulmonary process. PROCEDURES: None. CONSULTATIONS: None. CONDITION AT DISCHARGE: Stable and improved. DIET: Regular. CARE GOALS: To follow up with primary care physician within 1 week of discharge. Encouraged to take medications as prescribed. ACTIVITY: As tolerated. Discharge time 65 minutes including chart reviewed, physical examination, and documentation.
== END 2017-11-09 11:06 | disposition home or self-care (01) | DRG 189 ==
LOC: ERS 09:52 → T4-B 13:05
PROVIDERS: ADMIT Internal Medicine; ATTEND Internal Medicine
DX: J96.21 Acute and chronic respiratory failure with hypoxia (principal); J44.1 Chronic obstructive pulmonary disease with (acute) exacerbation; F17.210 Nicotine dependence, cigarettes, uncomplicated; Z88.0 Allergy status to penicillin
CPT/HCPCS: 36415; 71045; 80048; 80053; 82553; 84484; 85025; 93005; 94640; 94760; 96374; J1644; J1885; J1956; J2405; J2920; J2930; J7611; J7620

== ENCOUNTER 2017-12-30 11:41 | Emergency (ER) | payer SELFPAY ==
[2017-12-30] MEDS ORDERED: methylPREDNISolone Sod Succ/PF 125 MG/2 ML VIAL ONE (12:16)
[2017-12-30] MEDS ORDERED: Albuterol Sulfate 2.5 mg/0.5 ml Neb ONE ×2 (12:18)
[2017-12-30 12:21] LABS: #Basophils 0.1 thou/uL (0.0-0.2); #Eosinphils 0.1 thou/uL (0.0-0.7); #Monocytes 0.7 thou/uL (0.11-0.59); #Neutrophils 8.2 thou/uL (1.40-6.50); %Basophils 0.7 % (0.0-1.0); %Eosinophils 0.8 % (0.0-10.0); %Lymphocytes 18.1 % (21.0-51.0); %Monocytes 6.6 % (0.0-10.0); %Neutrophils 73.8 % (42.0-75.0); Hemoglobin 12.8 g/dL (12.0-16.0); Mean Corpuscular Hemoglobin 30.6 pg (27.0-31.0); Mean Corpuscular Volume 92.9 fl (81.0-99.0); Mean Platelet Volume 7.1 fL (7.4-10.4); Platelet Count 373 thou/uL (130-400); RBC Distribution Width 11.6 % (11.5-14.5); Red Blood Cell (RBC) Count 4.18 mill/uL (4.20-5.40); White Blood Cell (WBC) Count 11.1 thou/uL (4.8-10.8)
[2017-12-30 12:50] LABS: ALT (SGPT) 28 U/L (8-55); AST (SGOT) 23 U/L (5-34); Albumin 4.2 g/dL (3.5-5.0); Alkaline Phosphatase 101 U/L (40-150); Anion Gap 16 mmol/L (10-20); BUN (Urea Nitrogen) 9 mg/dL (7.0-18.7); Bilirubin, Total 0.4 mg/dL (0.2-1.2); CK (CPK) 192 U/L (29-168); Calc. Creatinine Clearance 0 mL/min (70-130); Calcium 10.1 mg/dL (7.8-10.44); Carbon Dioxide 30 mmol/L (22-29); Chloride 94 mmol/L (98-107); Estimated GFR-MDRD 68; Globulin 3.8 g/dL (2.4-3.5); Glucose 135 mg/dL (70-105); Sodium 137 mmol/L (136-145)
[2017-12-30 12:53] LABS: CKMB 5.1 ng/mL (0-6.6); Troponin I Less than 0.010 ng/mL (< 0.028)
[2017-12-30 12:56] LABS: Potassium 2.6 mmol/L (3.5-5.1)
--- NOTE | 2017-12-30 13:02 | RAD ---
CHEST ONE VIEW: HISTORY: Worsening shortness of breath. Cough. COMPARISON: 11/07/2017 FINDINGS: Normal cardiac silhouette. Pulmonary vessels and hilum are normal. No masses or consolidation. No pneumothorax or osseous abnormalities. IMPRESSION: No acute cardiopulmonary process. POS: [facility]
[2017-12-30] MEDS ORDERED: Potassium Chloride 20 MEQ TAB ONE (13:06)
[2017-12-30] MEDS ORDERED: Azithromycin 250 MG TAB ONE (13:40)
--- NOTE | 2018-01-01 15:02 | EKG ---
Test Reason : Blood Pressure : / mmHG Vent. Rate : 086 BPM Atrial Rate : 086 BPM P-R Int : 144 ms QRS Dur : 086 ms QT Int : 528 ms P-R-T Axes : 084 079 055 degrees QTc Int : 631 ms Normal sinus rhythm Possible Left atrial enlargement Nonspecific T wave abnormality Abnormal ECG Confirmed by GEOVANNA LAURA ([id number]), editor at large MATTY ROSARIO ([id number] on 01/01/2018 3:00:42 PM Referred By: Confirmed By:GEOVANNA LAURA
== END 2017-12-30 13:49 | disposition home or self-care (01) ==
LOC: ERS 11:41
DX: J44.1 Chronic obstructive pulmonary disease with (acute) exacerbation (principal); F31.9 Bipolar disorder, unspecified; F17.210 Nicotine dependence, cigarettes, uncomplicated; I25.2 Old myocardial infarction; Z86.73 Personal history of transient ischemic attack (TIA), and cerebral infarction without residual deficits; Z71.6 Tobacco abuse counseling
CPT/HCPCS: 71045; 80053; 82553; 83880; 84484; 85025; 87040; 93005; 94640; 96361; 96374; 99406; J2930; J7611; J7620

== ENCOUNTER 2018-02-20 20:07 | Emergency (ER) | payer SELFPAY ==
[2018-02-20] MEDS ORDERED: Famotidine 20 MG TAB ONE ×2 (20:27→20:32)
[2018-02-20 20:41] LABS: #Eosinphils 0.2 thou/uL (0.0-0.7); #Lymphocytes 2.1 thou/uL (1.20-3.40); #Monocytes 0.6 thou/uL (0.11-0.59); #Neutrophils 2.7 thou/uL (1.40-6.50); %Basophils 0.8 % (0.0-1.0); %Eosinophils 3.7 % (0.0-10.0); %Lymphocytes 36.6 % (21.0-51.0); %Monocytes 10.7 % (0.0-10.0); %Neutrophils 48.2 % (42.0-75.0); Hemoglobin 12.9 g/dL (12.0-16.0); Mean Corpuscular HGB CONC 33.9 g/dL (32.0-36.0); Mean Corpuscular Hemoglobin 30.5 pg (27.0-31.0); Mean Corpuscular Volume 90.2 fl (81.0-99.0); Mean Platelet Volume 6.8 fL (7.4-10.4); Platelet Count 207 thou/uL (130-400); RBC Distribution Width 12.2 % (11.5-14.5); Red Blood Cell (RBC) Count 4.23 mill/uL (4.20-5.40); White Blood Cell (WBC) Count 5.7 thou/uL (4.8-10.8)
[2018-02-20 20:59] LABS: Anion Gap 13 mmol/L (10-20); BUN (Urea Nitrogen) 8 mg/dL (7.0-18.7); Calc. Creatinine Clearance 0 mL/min (70-130); Calcium 8.4 mg/dL (7.8-10.44); Carbon Dioxide 26 mmol/L (22-29); Chloride 105 mmol/L (98-107); Estimated GFR-MDRD 58; Glucose 107 mg/dL (70-105); Potassium 3.6 mmol/L (3.5-5.1); Sodium 140 mmol/L (136-145)
[2018-02-20 21:05] LABS: CKMB 0.8 ng/mL (0-6.6); Troponin I Less than 0.010 ng/mL (< 0.028)
== END 2018-02-20 22:55 | disposition home or self-care (01) ==
LOC: ERS 20:07
DX: M79.89 Other specified soft tissue disorders (principal); R06.02 Shortness of breath; T36.0X5A Adverse effect of penicillins, initial encounter; I25.2 Old myocardial infarction; J44.9 Chronic obstructive pulmonary disease, unspecified; F31.9 Bipolar disorder, unspecified; F17.210 Nicotine dependence, cigarettes, uncomplicated; Z79.899 Other long term (current) drug therapy
CPT/HCPCS: 36415; 80048; 82553; 84484; 85025; 93005; 94760; 96360; 99406

== ENCOUNTER 2018-08-08 22:03 | Emergency (ER) | payer SELFPAY ==
[2018-08-08] MEDS ORDERED: Acetaminophen 500 MG TAB ONE (22:17)
--- NOTE | 2018-08-08 22:37 | RAD ---
RIGHT KNEE FOUR VIEWS: 08/08/18 HISTORY: 47-year-old female with history of right knee pain after falling in a hole. There is evidence for prior surgery of the knee joint. There appears to have been a prior ACL repair. Mild degenerative and osteoarthrosis changes. No fracture or dislocation. IMPRESSION: Postoperative changes. No fracture or dislocation. POS: [facility]
== END 2018-08-08 23:05 | disposition home or self-care (01) ==
LOC: ERS 22:03
DX: M25.561 Pain in right knee (principal); F10.10 Alcohol abuse, uncomplicated; I25.2 Old myocardial infarction; Z86.73 Personal history of transient ischemic attack (TIA), and cerebral infarction without residual deficits; J44.9 Chronic obstructive pulmonary disease, unspecified; F31.9 Bipolar disorder, unspecified; F17.210 Nicotine dependence, cigarettes, uncomplicated; Z79.899 Other long term (current) drug therapy

== ENCOUNTER 2018-08-17 00:12 | Observation (INO) | payer SELFPAY ==
[2018-08-17] MEDS ORDERED: methylPREDNISolone Sod Succ/PF 125 MG/2 ML VIAL ONE (00:31)
[2018-08-17 00:39] LABS: #Basophils 0.1 thou/uL (0.0-0.2); #Eosinphils 0.1 thou/uL (0.0-0.7); #Lymphocytes 3.2 thou/uL (1.20-3.40); #Monocytes 0.5 thou/uL (0.11-0.59); #Neutrophils 3.9 thou/uL (1.40-6.50); %Basophils 1.4 % (0.0-1.0); %Eosinophils 1.2 % (0.0-10.0); %Lymphocytes 40.7 % (21.0-51.0); %Monocytes 6.8 % (0.0-10.0); %Neutrophils 49.8 % (42.0-75.0); Hemoglobin 14.5 g/dL (12.0-16.0); Mean Corpuscular HGB CONC 33.7 g/dL (32.0-36.0); Mean Corpuscular Hemoglobin 31.6 pg (27.0-31.0); Mean Corpuscular Volume 93.8 fL (78.0-98.0); Mean Platelet Volume 7.2 fL (7.4-10.4); Platelet Count 257 thou/uL (130-400); RBC Distribution Width 12.3 % (11.5-14.5); Red Blood Cell (RBC) Count 4.58 mill/uL (4.20-5.40); White Blood Cell (WBC) Count 7.8 thou/uL (4.8-10.8)
[2018-08-17 00:55] LABS: Anion Gap 12 mmol/L (10-20); BUN (Urea Nitrogen) 9 mg/dL (7.0-18.7); Calc. Creatinine Clearance 0 mL/min (70-130); Calcium 9.4 mg/dL (7.8-10.44); Carbon Dioxide 29 mmol/L (22-29); Chloride 100 mmol/L (98-107); Estimated GFR-MDRD 54; Glucose 96 mg/dL (70-105); Potassium 4.1 mmol/L (3.5-5.1); Sodium 137 mmol/L (136-145)
[2018-08-17] MEDS ORDERED: Albuterol Sulfate 2.5 mg/0.5 ml Neb ONE (02:49)
[2018-08-17] MEDS ORDERED: Albuterol Sulfate 2.5 mg/3 ml Neb ONE (02:49)
[2018-08-17] MEDS ORDERED: Ondansetron ODT 4 MG TAB SL PRN (03:38)
[2018-08-17] MEDS ORDERED: Ondansetron PF 4 MG/2 ML Vial IVP PRN (03:38)
[2018-08-17 04:07] VITALS: BMI 23.7
[2018-08-17] MEDS: Acetaminophen 325 MG TAB PO PRN ×2 (04:16→10:08)
[2018-08-17] MEDS ORDERED: LEVAQUIN Pharmacy to Dose 1 EACH IVPB PRN (05:05)
--- NOTE | 2018-08-17 07:57 | RAD ---
PORTABLE CHEST ONE VIEW: 08/16/2018 11:38 p.m. HISTORY: Dyspnea. COMPARISON: 12/30/2017 FINDINGS: The heart size is normal. The lungs are well expanded without focal areas of consolidation, pneumoth orax, or pleural effusions. IMPRESSION: No radiographic evidence of acute cardiopulmonary process. POS: [facility]
[2018-08-17] MEDS ORDERED: methylPREDNISolone Sod Succ/PF 125 MG/2 ML VIAL IVP SCH ×2 (08:00→18:00)
[2018-08-17 15:56] VITALS: BP 100/55; TEMP 97.8
--- NOTE | 2018-08-17 17:09 | HP ---
SHORT STAY SUMMARY DATE OF ADMISSION: 08/17/2018 DATE OF DISCHARGE: 08/17/2018 PCP: NONE CHIEF COMPLAINT: Shortness of breath. HISTORY OF PRESENT ILLNESS/HOSPITAL COURSE: This is a 47-year-old female who was evaluated in the emergency room for shortness of breath. The patient reports that she had had a nonproductive cough for the last week associated with some yellow sputum, intermittent chills, subjective fever, reports a history of COPD and smokes a pack a day. She denied any rhinorrhea, congestion , nausea, vomiting, diarrhea. Reports that she does have oxygen at home, but wears intermittently. She was subsequently admitted for COPD exacerbation and started on Levaquin and neb treatments and steroids. Chest x-ray in the emergency room showed no evidence of cardiopulmonary process. Patient improved over the course of the day with neb treatments, IV steroids and antibiotics. Patient has been walking to another unit to visit a friend intermittently throughout the day and has not been in any distress. Wheezing has improved. Case discussed with Dr. Guthrie who agreed with plan to discharge home on antibiotics, PO steroids and home neb treatments. Patient was given smoking cessation counseling. REVIEW OF SYSTEMS: Constitutional: The patient reports chills, reports fever. Eyes: Denies any change of vision, any blurry vision. ENT: Denies any rhinorrhea. Denies sore throat. Cardiovascular: Denies any chest pain. Denies dyspnea on exertion. Respiratory: Reports a dry cough, shortness of breath, but does report some yellow sputum occasionally. Gastrointestinal: Denies any abdominal pain, nausea, vomiting, diarrhea. Genitourinary: Female. Denies any dysuria, hematuria. Musculoskeletal: Denies any injury, any musculoskeletal pain. Skin: Skin changes. Neurologic: Denies any focal weakness. Denies any sensory changes. PHYSICAL EXAMINATION: VITAL SIGNS: Blood pressure 112/52, pulse is 92, respirations 27, temperature 98.4, O2 saturations are 100% on room air. GENERAL: The patient appears nontoxic, is alert and oriented x3. HEAD: Atraumatic, normocephalic. EYES: Pupils are equally round and reactive to light. Extraocular muscles are intact. ENT: Mucous membranes are moist. NECK: Supple. No JVD. No tenderness on normal range of motion. RESPIRATORY: No acute distress, wheezing scattered in all lungs bases, tachypneic, decreased air movement in bases. CARDIAC: S1, S2. Normal heart sounds. Carotids are normal. ABDOMEN: Female. Nontender abdomen on palpation. Bowel sounds present x4. BACK: Normal range of motion. No tenderness to cerebrovascular accident. EXTREMITIES: Upper extremities, radial pulse normal. No cyanosis, no clubbing. Normal range of motion. Lower extremities, normal inspection. No cyanosis, no erythema, no tenderness. Pedal pulses intact bilaterally. NEUROLOGIC: The patient is oriented to person, place and time. Speech is normal. SKIN: Normal, dry, normal in color. LABORATORY DATA AND IMAGING PERTINENT: White blood cell count of 7.8, hemoglobin is 14.5, hematocrit 42.9, platelet count is 257,000. Chemistry, sodium 137, potassium 4.1, gap is 12, BUN is 9, creatinine is 1.08, GFR is 54, glucose 96, calcium 9.4. Chest x-ray showed no acute process. EKG in the ER showed normal sinus rhythm, 75 beats per minute, conduction was normal, ST segments normal, T waves normal. Possible left atrial enlargement. PAST MEDICAL HISTORY: Includes COPD, normally on oxygen at home, reports a myocardial infarction in 2014, CVA in 2015. Denies any residual effects. PAST SURGICAL HISTORY: The patient reports cholecystectomy. Reports right knee surgery. Reports left arm surgery x6. Reports a tubal ligation. PSYCHIATRIC HISTORY: Includes bipolar disorder. SOCIAL HISTORY: The patient denies alcohol abuse, denies drug use. Does smoke tobacco about half a pack to a pack a day. Currently reports living in her car. CURRENT MEDICATIONS: None. DISCHARGE MEDICATIONS: Prednisone 60mg po daily x4 days, Cipro 500mg po BID x10 days (changed from Levaquin for cost reasons). Patient states she has a nebulizer machine at home with albuterol solution. Instructed to give herself a Neb treatment every 4 hours x2 days then as needed. ALLERGIES: ASPIRIN and PENICILLIN. IMPRESSION/DISCHARGE DIAGNOSIS: 1. Chronic obstructive pulmonary disease exacerbation. 2. Tobacco Abuse. [facility] CENTERDmitriy
== END 2018-08-17 19:58 | disposition home or self-care (01) ==
LOC: ERS 00:12 → 2SW 03:31
PROVIDERS: ADMIT Internal Medicine; ATTEND Internal Medicine
DX: J44.1 Chronic obstructive pulmonary disease with (acute) exacerbation (principal); F17.210 Nicotine dependence, cigarettes, uncomplicated; I25.2 Old myocardial infarction; F31.9 Bipolar disorder, unspecified; Z86.73 Personal history of transient ischemic attack (TIA), and cerebral infarction without residual deficits; Z88.0 Allergy status to penicillin; Z88.8 Allergy status to other drugs, medicaments and biological substances; Z99.81 Dependence on supplemental oxygen
CPT/HCPCS: 71045; 80048; 85025; 93005; 94640; 94644; 96374; 96376; 99406; G0378; J2930; J7611; J7620; Q0162

== ENCOUNTER 2018-11-03 13:26 | Emergency (ER) | payer SELFPAY ==
[2018-11-03 13:51] LABS: #Basophils 0.1 thou/uL (0.0-0.2); #Eosinphils 0.1 thou/uL (0.0-0.7); #Lymphocytes 1.7 thou/uL (1.20-3.40); #Monocytes 0.5 thou/uL (0.11-0.59); #Neutrophils 3.1 thou/uL (1.40-6.50); %Eosinophils 1.2 % (0.0-10.0); %Lymphocytes 31.5 % (21.0-51.0); %Monocytes 9.6 % (0.0-10.0); %Neutrophils 56.8 % (42.0-75.0); Hemoglobin 13.1 g/dL (12.0-16.0); Mean Corpuscular HGB CONC 32.5 g/dL (32.0-36.0); Mean Corpuscular Volume 95.4 fL (78.0-98.0); Mean Platelet Volume 7.5 fL (7.4-10.4); Platelet Count 212 thou/uL (130-400); RBC Distribution Width 11.7 % (11.5-14.5); Red Blood Cell (RBC) Count 4.21 mill/uL (4.20-5.40); White Blood Cell (WBC) Count 5.5 thou/uL (4.8-10.8)
[2018-11-03 14:10] LABS: ALT (SGPT) 8 U/L (8-55); AST (SGOT) 14 U/L (5-34); Albumin 3.7 g/dL (3.5-5.0); Alkaline Phosphatase 65 U/L (40-150); Anion Gap 11 mmol/L (10-20); BUN (Urea Nitrogen) 10 mg/dL (7.0-18.7); Bilirubin, Total 0.2 mg/dL (0.2-1.2); CK (CPK) 140 U/L (29-168); Calc. Creatinine Clearance 0 mL/min (70-130); Calcium 8.5 mg/dL (7.8-10.44); Carbon Dioxide 24 mmol/L (22-29); Chloride 109 mmol/L (98-107); Estimated GFR-MDRD 74; Globulin 2.5 g/dL (2.4-3.5); Glucose 100 mg/dL (70-105); Potassium 3.9 mmol/L (3.5-5.1); Protein, Total 6.2 g/dL (6.0-8.3); Sodium 140 mmol/L (136-145)
--- NOTE | 2018-11-03 14:33 | RAD ---
CHEST 2 VIEWS: INDICATION: Chest pain. COMPARISON: Prior exam dated 08/16/2018. FINDINGS: There is nipple shadow overlying the right lung base. No suspicious airspace opacity. No pleural ef fusion or pneumothorax is evident. There is mild spondylosis of the thoracic spine. IMPRESSION: No acute cardiopulmonary abnormality. POS: [facility]
[2018-11-03] MEDS ORDERED: methylPREDNISolone Sod Succ/PF 125 MG/2 ML VIAL ONE (14:38)
[2018-11-03] MEDS ORDERED: Albuterol Sulfate 2.5 mg/3 ml Neb ONE (14:54)
[2018-11-03] MEDS ORDERED: Lorazepam 1 MG TAB ONE (14:56)
[2018-11-03] MEDS ORDERED: HYDROcodone/Acetaminophen 5/325 mg Tablet ONE (14:56)
== END 2018-11-03 15:17 | disposition home or self-care (01) ==
LOC: ERS 13:26
DX: J44.1 Chronic obstructive pulmonary disease with (acute) exacerbation (principal); R07.89 Other chest pain; I25.2 Old myocardial infarction; F31.9 Bipolar disorder, unspecified; F17.210 Nicotine dependence, cigarettes, uncomplicated; Z86.73 Personal history of transient ischemic attack (TIA), and cerebral infarction without residual deficits
CPT/HCPCS: 36415; 71046; 80053; 82550; 84484; 85025; 93005; 94640; 96374; J2930; J7611; J7620

== ENCOUNTER 2018-11-25 17:19 | Inpatient (IN) | payer SELFPAY ==
--- NOTE | 2018-11-25 18:04 | RAD ---
PORTABLE CHEST: 11/25/18 INDICATIONS: Cough. COMPARISON: 11/03/18. Increased interstitial and hazy alveolar markings in the right lower lung is worrisome for new infilt rate. Upper lung ordonez are clear. Heart size is normal. IMPRESSION: Question new right lower lung infiltrate. Recommend followup. POS: [facility]
[2018-11-25 18:07] LABS: #Lymphocytes 2.4 thou/uL (1.20-3.40); #Neutrophils 7.6 thou/uL (1.40-6.50); %Basophils 0.4 % (0.0-1.0); %Eosinophils 0.4 % (0.0-10.0); %Lymphocytes 21.6 % (21.0-51.0); %Monocytes 9.1 % (0.0-10.0); %Neutrophils 68.6 % (42.0-75.0); Hemoglobin 12.3 g/dL (12.0-16.0); Mean Corpuscular HGB CONC 33.7 g/dL (32.0-36.0); Mean Corpuscular Hemoglobin 31.3 pg (27.0-31.0); Mean Corpuscular Volume 92.7 fL (78.0-98.0); Mean Platelet Volume 7.1 fL (7.4-10.4); Platelet Count 309 thou/uL (130-400); RBC Distribution Width 11.2 % (11.5-14.5); Red Blood Cell (RBC) Count 3.93 mill/uL (4.20-5.40); White Blood Cell (WBC) Count 11.1 thou/uL (4.8-10.8)
[2018-11-25 18:16] LABS: Bilirubin Negative (Negative); Blood, Urine Trace (Negative); Clarity CLEAR (Clear); Glucose, Urine (Dipstick) Negative (Negative); Leukocyte Negative (Negative); Nitrite Negative (Negative); Protein, Urine (Dipstick) Negative (Neg-Trace); Specific Gravity, Urine 1.004 (1.002-1.036)
[2018-11-25 18:22] LABS: ALT (SGPT) Less than 7 U/L (8-55); AST (SGOT) 12 U/L (5-34); Albumin 3.5 g/dL (3.5-5.0); Alkaline Phosphatase 75 U/L (40-150); Anion Gap 15 mmol/L (10-20); BUN (Urea Nitrogen) 8 mg/dL (7.0-18.7); Bilirubin, Total 0.5 mg/dL (0.2-1.2); Calc. Creatinine Clearance 0 mL/min (70-130); Calcium 8.7 mg/dL (7.8-10.44); Carbon Dioxide 21 mmol/L (22-29); Chloride 102 mmol/L (98-107); Estimated GFR-MDRD 69; Globulin 3.5 g/dL (2.4-3.5); Glucose 110 mg/dL (70-105); Sodium 135 mmol/L (136-145)
[2018-11-25 18:25] LABS: Potassium 2.8 mmol/L (3.5-5.1)
[2018-11-25 18:35] LABS: Bacteria/HPF None Seen HPF (None Seen); Hyaline Casts/LPF NONE SEEN LPF (0-3 Hyaline); RBC/HPF 0-3 HPF (0-3); Squamous Epithelial 0-3 HPF (0-3); WBC/HPF 0-3 HPF (0-3)
[2018-11-25] MEDS ORDERED: cefTRIAXone\\ROCEPHIN 1 GM VIAL ONE (18:54)
[2018-11-25] MEDS ORDERED: Azithromycin 500 MG VIAL ONE (19:53)
[2018-11-25] MEDS ORDERED: methylPREDNISolone Sod Succ/PF 125 MG/2 ML VIAL ONE (19:55)
[2018-11-25] MEDS ORDERED: Ondansetron ODT 4 MG TAB SL PRN (21:29)
[2018-11-25] MEDS ORDERED: Acetaminophen 325 MG TAB PO PRN (21:29)
[2018-11-25] MEDS ORDERED: Ondansetron PF 4 MG/2 ML Vial IVP PRN (21:29)
[2018-11-25] MEDS ORDERED: Potassium Chloride 20 MEQ TAB PO SCH (22:00)
[2018-11-25] MEDS ORDERED: Metoclopramide HCl 10 MG/2 ML VIAL IVP SCH (22:00)
[2018-11-25] MEDS ORDERED: diphenhydrAMINE 50 MG CAP PO SCH (22:00)
--- NOTE | 2018-11-25 22:01 | PDOC.FPRHP ---
- History of Present Illness Chief Complaint: SOB, cough History of Present Illness: 48 yo homeless white female with hx of COPD presents for SOB and cough for past 4 days. Patient should be on 2L home O2, however she cannot afford to pay for O2. She also reports chills, exertional dyspnea, migraine with nausea and vomiting and photophobia, rhinorrhea, sore throat, and cough productive of greenish sputum. She denies chest pain, palpitations. She currently smokes 1-2 cig/day. In ED, Patient was hypoxic on RA. Septic with tachycardia and WBC elevation. CXR showed RLL infiltrate. Started on azithromycin and ceftriaxone. Duonebs and solumedrol. 1L NS. Blood and urine cx drawn. - Allergies/Adverse Reactions Allergies Allergy/AdvReac Type Severity Reaction Status Date / Time aspirin Allergy Verified 08/17/18 03:57 Penicillins Allergy Verified 08/17/18 03:57 - Home Medications Medication Instructions Recorded Confirmed Type Albuterol Sulfate [Albuterol 0.63 mg NEB Q4HR PRN #120 ml 06/22/17 11/25/18 Rx Sulfate Neb] - History PMHx:Mi 2013, CVA 2014 with no deficits. COPD. Bipolar. Tobacco abuse. PSHx: cholecystectomy, L arm surgeries x6, tubal ligation FHx: Denies DM. Lung cancer in her mother. Social: Homeless, staying with a friend until friday. 1-2 cig/day. Denies alcohol or drug use. Reports she has been denied for disability in the past. - Review of Systems General: reports: fever/chills, weight/appetite/sleep changes (decreased appetite), other (migraine headache) Eyes: denies: eye pain, vision changes ENT: reports: nasal congestion, rhinorrhea Respiratory: reports: cough, congestion, shortness of breath Cardiovascular: denies: chest pain, palpitation, edema Gastrointestinal: reports: nausea, vomiting. denies: diarrhea, constipation, abdominal pain, GI bleeding Genitourinary: denies: dysuria, other (hematuria) Skin: denies: rashes, lesions Musculoskeletal: denies: pain, tenderness Neurological: denies: numbness, weakness Psychological: denies: anxiety, depression - Vital signs BP: [103/59] HR: [91] RR: [20] Tmax: [96.5] Pox: [94]% on [2L BNC] Wt: [58.97 kg] - Physical Exam Constitutional: NAD, awake, alert and oriented, well developed HEENT: normocephalic and atraumatic, PERRLA, EOMI, MMM, oropharynx clear Neck: supple Heart: RRR, normal S1/S2, no murmurs/rubs/gallops, no edema Lungs: no wheezing, other (+coughing, poor air movement, examined s/p duoneb) Abdomen: soft, non-tender, bowel sounds present, no masses/distention Musculoskeletal: normal structure, normal tone Neurological: no focal deficit, CN II-XII intact Skin: no rash/lesions, good turgor, capillary refill <2 seconds Heme/Lymphatic: no unusual bruising or bleeding, no purpura Psychiatric: normal mood and affect, intact recent and remote memory FMR H&P: Results - Labs Result Diagrams: 11/25/18 17:31 11/25/18 17:31 Lab results: WBC 11.1 thou/uL (4.8-10.8) H 11/25/18 17:31 Hgb 12.3 g/dL (12.0-16.0) 11/25/18 17:31 Hct 36.4 % (36.0-47.0) 11/25/18 17:31 MCV 92.7 fL (78.0-98.0) 11/25/18 17:31 Plt Count 309 thou/uL (130-400) 11/25/18 17:31 Neutrophils % 68.6 % (42.0-75.0) 11/25/18 17:31 Sodium 135 mmol/L (136-145) L 11/25/18 17:31 Potassium 2.8 mmol/L (3.5-5.1) L* 11/25/18 17:31 Chloride 102 mmol/L (98-107) 11/25/18 17:31 Carbon Dioxide 21 mmol/L (22-29) L 11/25/18 17:31 BUN 8 mg/dL (7.0-18.7) 11/25/18 17:31 Creatinine 0.88 mg/dL (0.6-1.1) 11/25/18 17:31 Glucose 110 mg/dL (70-105) H 11/25/18 17:31 Lactic Acid 1.4 mmol/L (0.5-2.2) 11/25/18 17:31 Calcium 8.7 mg/dL (7.8-10.44) 11/25/18 17:31 Total Bilirubin 0.5 mg/dL (0.2-1.2) 11/25/18 17:31 AST 12 U/L (5-34) 11/25/18 17:31 ALT Less than 7 U/L (8-55) L 11/25/18 17:31 Alkaline Phosphatase 75 U/L (40-150) 11/25/18 17:31 Serum Total Protein 7.0 g/dL (6.0-8.3) 11/25/18 17:31 Albumin 3.5 g/dL (3.5-5.0) 11/25/18 17:31 Urine Ketones Negative mg/dL (Negative) 11/25/18 17:41 Urine Blood Trace (Negative) H 11/25/18 17:41 Urine Nitrite Negative (Negative) 11/25/18 17:41 Ur Leukocyte Esterase Negative (Negative) 11/25/18 17:41 Urine RBC 0-3 HPF (0-3) 11/25/18 17:41 Urine WBC 0-3 HPF (0-3) 11/25/18 17:41 Ur Squamous Epith Cells 0-3 HPF (0-3) 11/25/18 17:41 Urine Bacteria None Seen HPF (None Seen) 11/25/18 17:41 - EKG Interpretation EKG: NSR - Radiology Interpretation Chest x-ray Status: image reviewed by me, report reviewed by me Additional comment: RLL infiltrate FMR H&P: A/P - Problem List (1) Acute and chronic respiratory failure with hypoxia Current Visit: No Status: Acute Code(s): J96.21 - ACUTE AND CHRONIC RESPIRATORY FAILURE WITH HYPOXIA Comment: Improving. On 2L O2 at home at baseline. (2) COPD exacerbation Current Visit: No Status: Acute Code(s): J44.1 - CHRONIC OBSTRUCTIVE PULMONARY DISEASE W (ACUTE) EXACERBATION (3) Hypokalemia Current Visit: No Status: Acute Code(s): E87.6 - HYPOKALEMIA (4) Medical non-compliance Current Visit: No Status: Acute Code(s): Z91.19 - PATIENT'S NONCOMPLIANCE W OTH MEDICAL TREATMENT AND REGIMEN (5) Tobacco abuse Current Visit: No Status: Chronic Code(s): Z72.0 - TOBACCO USE Comment: Counselled on cessation. (6) Hx of myocardial infarction Current Visit: Yes Status: Chronic Code(s): I25.2 - OLD MYOCARDIAL INFARCTION (7) History of CVA (cerebrovascular accident) without residual deficits Current Visit: Yes Status: Chronic (8) Sepsis due to pneumonia Current Visit: Yes Status: Acute Code(s): J18.9 - PNEUMONIA, UNSPECIFIED ORGANISM; A41.9 - SEPSIS, UNSPECIFIED ORGANISM (9) Migraine Current Visit: Yes Status: Chronic Code(s): G43.909 - MIGRAINE, UNSP, NOT INTRACTABLE, WITHOUT STATUS MIGRAINOSUS - Plan Acute on Chronic hypoxic resp failure 2/2 COPD exacerbation - Hypoxic on presentation, improved on 2L BNC - Should be on home 2L O2, however cannot afford as homeless - Duonebs ASHIA, Q2 PRN - Steroids started (11/25) - CM management consult for home O2 Sepsis 2/2 pneumonia - Hypoxic, P 91, WBC 11.1 - CXR: RLL pneumonia - Continue Rocephin and azithromycin (11/25) - 1L NS bolus in ED, 1 L LR bolus now - Procal pending - UA neg, blood and urine cx pending Hypokalemia - 2.8. Monitor and replace as needed. - 40 meq given - AM BMP Bipolar - Not on medication, as she cannot afford - States she gets angry easily, "explodes" at people for no reason, she may not be true bipolar, consider personality disorder Migraines - allergy to aspirin - reglan and benadryl given - Tylenol PRN Tobacco abuse - 1-2 cig/day, 17 PY hx - [place] [employer] cessation Hx AK Hx CVA - no residual deficits Diet: Regular DVT ppx: lovenox GI: ranitidine Code status: DNAR PCP: none Kiana Hernandez MD PGY-1 FMR H&P: Upper Level - Pertinent history 48 yo WF PMH COPD, CAD, and CVA. Presents with SOB that started on Friday. Progressively worsened prompting her to come to ER for evaluation. Reports subjective fever, N/V and increase sputum production. Requires 2L oxygen at home. Also reports migraine CARR during same time including photo and phonophobia. ER: Labs, CXR, EKG, Solumedrol, rocephin, azithormycin, duoneb, NS 1L. - Pertinent findings Vitals: WNL GEN: NAD ENT: Post nasal drip. CV: RRR, no murmur Pulm: CTA-B Neuro: no focal deficits. Labs: WBC 11.1 CXR: RLL infiltrate. - Plan Date/Time: 11/25/182156 I, Tru Jimenez MD, have evaluated this patient and agree with findings/plan as outlined by intern product marketing manager resident. Pertinent changes/additions are listed here. 1. COPD exacerbation 2/2 CAP: prednisone, scheduled duonebs, continue rocephin and azithromycin. Currently at baseline oxygen requirement. titrate to goal >88% . 2. CAD: Home meds 3. Tobacco abuse: Encouraged cessation 4. Homelessness: CM consult. 5. Diet: HH 6. PPx: Lovenox 7. CODE: DNAR Dispo: Obs, Medical <[address] Jordan. Addendum - Attending - Attending Attestation Date/Time: 11/25/18 9044 I personally evaluated the patient and discussed the management with Dr. Jimenez I agree with the History, Examination, Assessment and Plan documented above with any addition or exceptions noted below- 48 yo female with h/o COPD, CVA with no residuals, and [place] in 2013 presented c/o cough and SOB since Friday. Cough productive of yellow sputum. Subj fevers. No ill contacts. PMH/PSH/Meds/ SH reviewed and agree with resident's documentation. T98.7 P97 RR22 BP 99/55 92% on 2L NC Exam repeated by me and agree with resident's findings. Labs: WBC =11.1, H/H=12.3/36.4, Fcv=739, Ir=610, K=2.8, Xj=143, CO2=21, BUN/Cr=8/0.88, Rgsv=116, Lactic acid=1.4, AST/ALT=12/<7, CXR- hyperinflation; RLL infiltrate, Flu (-). A/P: 1) COPD exacerbation- continue nebs, steroids, O2. 2) Possible CAP - received rocephin and zithromax in ER; continue zithromax.
[2018-11-25] MEDS ORDERED: Enoxaparin Sodium 40 MG/0.4 ML SYRINGE SC SCH (22:18)
[2018-11-25] MEDS: Lactated Ringer's 1,000 ML IV SCH (22:23)
[2018-11-25 22:52] LABS: Strep pneumo Urine Ag NEGATIVE (NEGATIVE)
[2018-11-26] MEDS: Lactated Ringer's 1,000 ML IV SCH (00:57)
[2018-11-26 00:58] VITALS: BMI 21.9
[2018-11-26 06:27] LABS: #Lymphocytes 0.8 thou/uL (1.20-3.40); #Monocytes 0.2 thou/uL (0.11-0.59); #Neutrophils 7.7 thou/uL (1.40-6.50); %Basophils 0.1 % (0.0-1.0); %Lymphocytes 9.1 % (21.0-51.0); %Monocytes 2.1 % (0.0-10.0); %Neutrophils 88.7 % (42.0-75.0); Hemoglobin 11.9 g/dL (12.0-16.0); Mean Corpuscular HGB CONC 33.3 g/dL (32.0-36.0); Mean Corpuscular Hemoglobin 30.9 pg (27.0-31.0); Mean Corpuscular Volume 92.8 fL (78.0-98.0); Mean Platelet Volume 6.9 fL (7.4-10.4); Platelet Count 339 thou/uL (130-400); RBC Distribution Width 11.2 % (11.5-14.5); Red Blood Cell (RBC) Count 3.85 mill/uL (4.20-5.40); White Blood Cell (WBC) Count 8.7 thou/uL (4.8-10.8)
[2018-11-26 06:46] LABS: Anion Gap 12 mmol/L (10-20); BUN (Urea Nitrogen) 6 mg/dL (7.0-18.7); Calc. Creatinine Clearance 87 mL/min (70-130); Calcium 8.9 mg/dL (7.8-10.44); Carbon Dioxide 24 mmol/L (22-29); Chloride 105 mmol/L (98-107); Estimated GFR-MDRD 86; Glucose 164 mg/dL (70-105); Magnesium 1.8 mg/dL (1.6-2.6); Sodium 137 mmol/L (136-145)
[2018-11-26] MEDS ORDERED: predniSONE 20 MG TAB PO SCH (08:00)
--- NOTE | 2018-11-26 08:30 | PDOC.FM ---
- Subjective Subjective: Patient seen at bedside this morning in no acute distress. She complains of continued cough and SOB. No acute events over night. No new symptoms - Objective MAR Reviewed: Yes Vital Signs & Weight: Vital Signs (12 hours) Temp Pulse Resp BP Pulse Ox 11/26/18 08:00 98.2 F 69 18 92/57 L 93 L 11/26/18 04:00 98 F 73 16 94/59 L 96 11/26/18 02:57 94 20 11/26/18 00:06 97.9 F 84 16 93/55 L 95 11/25/18 21:05 98.9 F 97 22 H 99/55 L 92 L Weight Weight 57.878 kg Result Diagrams: 11/26/18 06:14 11/26/18 06:14 Phys Exam - Physical Examination Constitutional: NAD HEENT: moist MMs Neck: no JVD Wheeze in bases b/l Cardiovascular: RRR, no significant murmur Gastrointestinal: soft, non-tender, no distention Musculoskeletal: no edema Neurological: moves all 4 limbs Lymphatic: no nodes Psychiatric: A&O x 3 Skin: no rash Dx/Plan (1) CAP (community acquired pneumonia) Code(s): J18.9 - PNEUMONIA, UNSPECIFIED ORGANISM Status: Acute (2) Acute and chronic respiratory failure with hypoxia Code(s): J96.21 - ACUTE AND CHRONIC RESPIRATORY FAILURE WITH HYPOXIA Status: Acute (3) COPD exacerbation Code(s): J44.1 - CHRONIC OBSTRUCTIVE PULMONARY DISEASE W (ACUTE) EXACERBATION Status: Acute (4) Hypokalemia Code(s): E87.6 - HYPOKALEMIA Status: Acute (5) Bipolar disorder Code(s): F31.9 - BIPOLAR DISORDER, UNSPECIFIED Status: Acute - Plan Plan: 1. Acute hypoxic respiratory failure secondary to COPD exacerbation and CAP - Continues to require 2L O2 to maintain sat >90. Patient apparently has been Rx 'd home O2 in the past, however she is unable to afford it. This may be her baseline. - continue abx 2. COPD exacerbation - patient has apparently stopped smoking for the past month. - PE c/w acute exacerbation. - continue steroids and duonebs 3. Hypokalemia, resolved - will replace Mg as it is low normal - recheck in am 4. Bipolar disorder - currently stable, however not on meds - will refer to [facility] in outpt Dispo: patient currently stable. She appears to be at O2 requirement baseline, however she is needing frequent nebs. LOS 1-2 days Addendum - Attending - Attending Attestation Date/Time: 11/26/18 4443 I personally evaluated the patient and discussed the management with Dr. Velazquez. I agree with the History, Examination, Assessment and Plan documented above with any addition or exceptions noted below. Acute on chronic hypoxic resp failure COPD exac RLL Pneumonia Homelessness -Change to inpatient criteria. Continue steroids, nebs, Azithromycin/Rocephin, O2. Will work with CM to see if we can assist in medications and home O2.
[2018-11-26] MEDS: Azithromycin 250 MG TAB PO SCH (08:49)
[2018-11-26] MEDS: Famotidine 20 MG TAB PO SCH ×2 (08:49→20:42)
[2018-11-26] MEDS: Enoxaparin Sodium 40 MG/0.4 ML SYRINGE SC SCH (08:50)
[2018-11-26] MEDS: predniSONE 20 MG TAB PO SCH (08:51)
[2018-11-26] MEDS ORDERED: Naproxen 500 MG TAB PO PRN (09:08)
[2018-11-26] MEDS ORDERED: Ondansetron PF 4 MG/2 ML Vial IVP PRN (14:22)
[2018-11-26] MEDS ORDERED: Ondansetron ODT 4 MG TAB PO PRN (14:22)
[2018-11-26] MEDS: Acetaminophen 500 MG TAB PO PRN (20:42)
[2018-11-26] MEDS: cefTRIAXone\\ROCEPHIN 1 GM in Sodium Chloride 0.9% 100 ML IVPB SCH (22:50)
[2018-11-26] MEDS ORDERED: Metoclopramide HCl 10 MG/2 ML VIAL IVP SCH (23:30)
[2018-11-26] MEDS ORDERED: diphenhydrAMINE 50 MG/ML VIAL IVP SCH (23:30)
[2018-11-27] MEDS ORDERED: Magnesium 2 GM/50 ML 2 GM in Premix Bag 1 BAG IVPB SCH (04:45)
[2018-11-27 05:50] LABS: #Monocytes 0.8 thou/uL (0.11-0.59); #Neutrophils 8.1 thou/uL (1.40-6.50); %Basophils 0.2 % (0.0-1.0); %Eosinophils 0.2 % (0.0-10.0); %Lymphocytes 24.9 % (21.0-51.0); %Monocytes 6.7 % (0.0-10.0); %Neutrophils 68.1 % (42.0-75.0); Hemoglobin 11.1 g/dL (12.0-16.0); Mean Corpuscular HGB CONC 32.1 g/dL (32.0-36.0); Mean Corpuscular Hemoglobin 30.4 pg (27.0-31.0); Mean Platelet Volume 7.1 fL (7.4-10.4); Platelet Count 323 thou/uL (130-400); RBC Distribution Width 11.3 % (11.5-14.5); Red Blood Cell (RBC) Count 3.66 mill/uL (4.20-5.40); White Blood Cell (WBC) Count 11.9 thou/uL (4.8-10.8)
[2018-11-27 06:12] LABS: Anion Gap 11 mmol/L (10-20); BUN (Urea Nitrogen) 10 mg/dL (7.0-18.7); Calc. Creatinine Clearance 85 mL/min (70-130); Calcium 8.6 mg/dL (7.8-10.44); Carbon Dioxide 23 mmol/L (22-29); Chloride 104 mmol/L (98-107); Estimated GFR-MDRD 84; Glucose 122 mg/dL (70-105); Potassium 3.4 mmol/L (3.5-5.1); Sodium 135 mmol/L (136-145)
[2018-11-27] MEDS ORDERED: Potassium Chloride 20 MEQ TAB PO SCH (08:15)
--- NOTE | 2018-11-27 08:17 | PDOC.FM ---
- Subjective Subjective: Seen at bedside this morning in no acute distress. Over night patient complained of continued headache and requested morphine. She was treated per headache protocol with benadryl and mag. No new complaints today. - Objective MAR Reviewed: Yes Vital Signs & Weight: Vital Signs (12 hours) Temp Pulse Resp BP Pulse Ox 11/27/18 05:15 97.6 F 79 24 H 100/65 96 11/27/18 02:29 82 16 96 11/27/18 00:03 97.7 F 77 20 89/49 L 94 L 11/26/18 22:03 80 20 95 Weight Weight 57.878 kg I&O: 11/26/18 11/27/18 11/28/18 06:59 06:59 06:59 Intake Total 1999 Balance 1999 Result Diagrams: 11/27/18 04:54 11/27/18 04:54 Phys Exam - Physical Examination Constitutional: NAD HEENT: sclera anicteric Neck: no JVD Decreased air movement throughout. Otherwise, CTA Cardiovascular: RRR, no significant murmur Gastrointestinal: soft, non-tender, no distention Musculoskeletal: no edema Neurological: moves all 4 limbs Psychiatric: normal affect, A&O x 3 Skin: no rash Dx/Plan (1) CAP (community acquired pneumonia) Code(s): J18.9 - PNEUMONIA, UNSPECIFIED ORGANISM Status: Acute (2) Acute and chronic respiratory failure with hypoxia Code(s): J96.21 - ACUTE AND CHRONIC RESPIRATORY FAILURE WITH HYPOXIA Status: Acute (3) COPD exacerbation Code(s): J44.1 - CHRONIC OBSTRUCTIVE PULMONARY DISEASE W (ACUTE) EXACERBATION Status: Acute (4) Hypokalemia Code(s): E87.6 - HYPOKALEMIA Status: Acute (5) Bipolar disorder Code(s): F31.9 - BIPOLAR DISORDER, UNSPECIFIED Status: Acute - Plan Plan: 1. Acute hypoxic respiratory failure secondary to COPD exacerbation and CAP - CO2 demand stable at 2L. This appears to be her baseline. CM is working on options for home O2. Still complaining of increased SOB and cough. - continue abx and prednisone. - continue scheduled duoneb 2. COPD exacerbation - as above 3. Hypokalemia - mild and asymptomatic this morning. Will replace PO in addition to replacing Mg 4. Bipolar disorder - currently stable, however not on meds - will refer to [facility] in outpt Dispo: patient currently stable. She appears to be at O2 requirement baseline, however she is needing frequent nebs. LOS 1-2 days Addendum - Attending - Attending Attestation Date/Time: 11/27/18 1101 I personally evaluated the patient and discussed the management with Dr. Velazquez. I agree with the History, Examination, Assessment and Plan documented above with any addition or exceptions noted below. CAP and COPD Exac- improving on abx, steroids, nebs and O2 but not quite at baseline. Expect will be ready for d/c tomorrow. Homelessness- needs home O2 set up. Patient has nebulizer machine.
[2018-11-27] MEDS: predniSONE 20 MG TAB PO SCH ×2 (10:04→10:10)
[2018-11-27] MEDS: Famotidine 20 MG TAB PO SCH ×2 (10:04→21:37)
[2018-11-27] MEDS: Enoxaparin Sodium 40 MG/0.4 ML SYRINGE SC SCH ×2 (10:04→10:10)
[2018-11-27] MEDS: Azithromycin 250 MG TAB PO SCH (10:05)
[2018-11-27 14:06] LABS: HIV (1/2) Antibody/Antigen Non-Reactive (NonReactive); HIV 1/2 INDEX 0.34 S/CO (<1.00)
[2018-11-27 14:36] LABS: Syphilis Antibody Index 12.83 S/CO (<1.00 Non-Reactive)
[2018-11-27] MEDS: Acetaminophen 500 MG TAB PO PRN (16:03)
[2018-11-27 17:57] LABS: Syphilis Antibody REACTIVE (Nonreactive)
[2018-11-27] MEDS ORDERED: Ibuprofen 800 MG TAB PO PRN (20:09)
[2018-11-27] MEDS: cefTRIAXone\\ROCEPHIN 1 GM in Sodium Chloride 0.9% 100 ML IVPB SCH (22:39)
[2018-11-28 06:30] LABS: #Lymphocytes 2.8 thou/uL (1.20-3.40); #Monocytes 0.8 thou/uL (0.11-0.59); #Neutrophils 7.1 thou/uL (1.40-6.50); %Basophils 0.4 % (0.0-1.0); %Eosinophils 0.4 % (0.0-10.0); %Lymphocytes 26.3 % (21.0-51.0); %Monocytes 7.2 % (0.0-10.0); %Neutrophils 65.8 % (42.0-75.0); Hemoglobin 11.5 g/dL (12.0-16.0); Mean Corpuscular Hemoglobin 31.3 pg (27.0-31.0); Mean Corpuscular Volume 94.7 fL (78.0-98.0); Mean Platelet Volume 7.1 fL (7.4-10.4); Platelet Count 364 thou/uL (130-400); RBC Distribution Width 11.4 % (11.5-14.5); Red Blood Cell (RBC) Count 3.68 mill/uL (4.20-5.40); White Blood Cell (WBC) Count 10.7 thou/uL (4.8-10.8)
[2018-11-28 06:43] LABS: Anion Gap 14 mmol/L (10-20); BUN (Urea Nitrogen) 8 mg/dL (7.0-18.7); Calc. Creatinine Clearance 83 mL/min (70-130); Calcium 8.5 mg/dL (7.8-10.44); Carbon Dioxide 23 mmol/L (22-29); Chloride 105 mmol/L (98-107); Estimated GFR-MDRD 81; Glucose 112 mg/dL (70-105); Potassium 3.8 mmol/L (3.5-5.1); Sodium 138 mmol/L (136-145)
--- NOTE | 2018-11-28 06:58 | PDOC.FM ---
- Subjective Subjective: Seen at bedside this morning resting comfortably, no acute distress. No events over night. No new complaints - Objective MAR Reviewed: Yes Vital Signs & Weight: Vital Signs (12 hours) Temp Pulse Resp BP Pulse Ox 11/28/18 04:00 97.7 F 65 20 105/68 95 11/28/18 02:21 66 16 99 11/28/18 00:00 97.6 F 88 20 107/68 94 L 11/27/18 22:53 72 16 97 11/27/18 21:37 94 L 11/27/18 20:00 97.6 F 88 20 100/61 94 L Weight Weight 57.878 kg I&O: 11/26/18 11/27/18 11/28/18 06:59 06:59 06:59 Intake Total 1999 820 Balance 1999 820 Result Diagrams: 11/28/18 05:58 11/28/18 05:58 Phys Exam - Physical Examination Constitutional: NAD HEENT: moist MMs Neck: full ROM Respiratory: no wheezing, clear to auscultation bilateral Cardiovascular: RRR, no significant murmur Gastrointestinal: soft, non-tender, no distention Musculoskeletal: no edema Neurological: moves all 4 limbs Psychiatric: normal affect, A&O x 3 Skin: no rash, normal turgor Dx/Plan (1) CAP (community acquired pneumonia) Code(s): J18.9 - PNEUMONIA, UNSPECIFIED ORGANISM Status: Acute (2) Acute and chronic respiratory failure with hypoxia Code(s): J96.21 - ACUTE AND CHRONIC RESPIRATORY FAILURE WITH HYPOXIA Status: Acute (3) COPD exacerbation Code(s): J44.1 - CHRONIC OBSTRUCTIVE PULMONARY DISEASE W (ACUTE) EXACERBATION Status: Acute (4) Hypokalemia Code(s): E87.6 - HYPOKALEMIA Status: Acute (5) Bipolar disorder Code(s): F31.9 - BIPOLAR DISORDER, UNSPECIFIED Status: Acute (6) Syphilis Code(s): A53.9 - SYPHILIS, UNSPECIFIED Status: Acute - Plan Plan: 1. Acute hypoxic respiratory failure secondary to COPD exacerbation and CAP, resolved - Walking O2 test yesterday showed normal O2 saturation on room air, pt will not need home ot. - continue abx and prednisone. - continue scheduled duoneb - Pt ready to dc today or tomorrow. 2. COPD exacerbation - as above 3. Hypokalemia, resolved 4. Bipolar disorder - currently stable, however not on meds - will refer to [facility] in outpt 5. Syphilis - patient was contacted by health department while admitted that she may have been exposed. Both IgG/IgM and RPR are positive here. - RPR 1:8 - Patient has severe PCN allergy. Will discuss with health department today and consider desensitization vs alternate treatment options - Pt denies genital lesions, skin rash, or neuro symptoms Dispo: patient currently stable. Likely los 48 hours Addendum - Attending - Attending Attestation Date/Time: 11/28/18 8023 I personally evaluated the patient and discussed the management with Dr. Velazquez. I agree with the History, Examination, Assessment and Plan documented above with any addition or exceptions noted below. The patient denies new concerns this morning. She was contacted by the health department about possible syphillis exposure. She has tested positive though is asymptomatic. She has a severe allergy to penicillin. will discuss treatment plan with health department.
[2018-11-28] MEDS: Famotidine 20 MG TAB PO SCH ×2 (08:13→20:46)
[2018-11-28] MEDS: Azithromycin 250 MG TAB PO SCH (08:13)
[2018-11-28] MEDS: predniSONE 20 MG TAB PO SCH (08:13)
[2018-11-28] MEDS: Enoxaparin Sodium 40 MG/0.4 ML SYRINGE SC SCH (08:14)
[2018-11-28] MEDS: Benzonatate 100 MG CAP PO SCH ×2 (14:45→20:46)
[2018-11-28] MEDS: Doxycycline 100 MG CAP PO SCH (20:46)
[2018-11-29 06:06] LABS: #Eosinphils 0.1 thou/uL (0.0-0.7); #Lymphocytes 3.4 thou/uL (1.20-3.40); #Neutrophils 6.7 thou/uL (1.40-6.50); %Eosinophils 0.6 % (0.0-10.0); %Lymphocytes 30.6 % (21.0-51.0); %Neutrophils 59.8 % (42.0-75.0); Hemoglobin 12.4 g/dL (12.0-16.0); Mean Corpuscular HGB CONC 32.6 g/dL (32.0-36.0); Mean Corpuscular Hemoglobin 31.1 pg (27.0-31.0); Mean Corpuscular Volume 95.2 fL (78.0-98.0); Mean Platelet Volume 6.9 fL (7.4-10.4); Platelet Count 380 thou/uL (130-400); RBC Distribution Width 11.4 % (11.5-14.5); White Blood Cell (WBC) Count 11.2 thou/uL (4.8-10.8)
--- NOTE | 2018-11-29 06:29 | PDOC.FM ---
- Subjective Subjective: Seen at bedside this morning resting comfortably, no acute distress. No new complaints. No events over night. - Objective MAR Reviewed: Yes Vital Signs & Weight: Vital Signs (12 hours) Temp Pulse Resp BP Pulse Ox 11/28/18 20:06 93 L 11/28/18 20:00 97.6 F 71 20 98/62 93 L 11/28/18 19:15 94 L 11/28/18 19:14 70 16 94 L Weight Weight 57.878 kg I&O: 11/27/18 11/28/18 11/29/18 06:59 06:59 06:59 Intake Total 1999 820 960 Balance 1999 820 960 Result Diagrams: 11/29/18 05:15 11/29/18 05:15 Phys Exam - Physical Examination Constitutional: NAD HEENT: PERRLA, sclera anicteric Neck: no JVD Respiratory: clear to auscultation bilateral Cardiovascular: RRR, no significant murmur Gastrointestinal: soft, non-tender, no distention Musculoskeletal: no edema Neurological: moves all 4 limbs Psychiatric: A&O x 3 Skin: no rash Dx/Plan (1) CAP (community acquired pneumonia) Code(s): J18.9 - PNEUMONIA, UNSPECIFIED ORGANISM Status: Acute (2) COPD exacerbation Code(s): J44.1 - CHRONIC OBSTRUCTIVE PULMONARY DISEASE W (ACUTE) EXACERBATION Status: Acute (3) Hypokalemia Code(s): E87.6 - HYPOKALEMIA Status: Acute (4) Bipolar disorder Code(s): F31.9 - BIPOLAR DISORDER, UNSPECIFIED Status: Acute (5) Syphilis Code(s): A53.9 - SYPHILIS, UNSPECIFIED Status: Acute - Plan Plan: 1. Acute hypoxic respiratory failure secondary to COPD exacerbation and CAP, resolved - Sats on room air in mid 90s - last day of abx today, continue steroids for 1 week total duration - duoneb prn - Pt ready to dc today 2. COPD exacerbation - as above 3. Hypokalemia, resolved 4. Bipolar disorder - currently stable, however not on meds - will refer to [facility] in outpt 5. Syphilis - IgG/IgM and RPR are positive here. RPR 1:8 - Patient has severe PCN allergy after discussion with ID patient has been started on Doxy for 15 day course. Will need follow up at 3, 6, 12 mo with ID Dispo: patient currently stable. Plan to dc today Addendum - Attending - Attending Attestation Date/Time: 11/29/18 4491 I personally evaluated the patient and discussed the management with Dr. Velazquez. I agree with the History, Examination, Assessment and Plan documented above with any addition or exceptions noted below. The patient is doing well. She will be treated with doxycyline for the syphillis. She states she is feeling better and will be discharged home.
[2018-11-29 06:30] LABS: Anion Gap 12 mmol/L (10-20); BUN (Urea Nitrogen) 10 mg/dL (7.0-18.7); Calc. Creatinine Clearance 80 mL/min (70-130); Calcium 8.8 mg/dL (7.8-10.44); Carbon Dioxide 27 mmol/L (22-29); Chloride 104 mmol/L (98-107); Estimated GFR-MDRD 78; Glucose 96 mg/dL (70-105); Potassium 4.3 mmol/L (3.5-5.1); Sodium 139 mmol/L (136-145)
[2018-11-29] MEDS: predniSONE 20 MG TAB PO SCH (09:02)
[2018-11-29] MEDS: Famotidine 20 MG TAB PO SCH (09:03)
[2018-11-29] MEDS: Enoxaparin Sodium 40 MG/0.4 ML SYRINGE SC SCH (09:03)
[2018-11-29] MEDS: Doxycycline 100 MG CAP PO SCH (09:03)
[2018-11-29] MEDS: Benzonatate 100 MG CAP PO SCH ×2 (09:22→14:25)
[2018-11-29] MEDS: Acetaminophen 500 MG TAB PO PRN (14:25)
[2018-11-29 16:36] VITALS: BP 117/79; TEMP 97.5
[2018-11-29] MEDS ORDERED: Mometasone/Formoterol 120 PUFF INHALER INH SCH (18:30)
--- NOTE | 2018-12-01 06:09 | DIS ---
DATE OF ADMISSION: 11/26/2018 DATE OF DISCHARGE: 11/29/2018 RESIDENT: Elias Velazquez DO CONSULTS: None. PROCEDURES: A chest x-ray on 11/25, finding, possible right lower lung infiltrate. ADMITTING DIAGNOSES: 1. Chronic obstructive pulmonary disease exacerbation with right lower lobe pneumonia. 2. Sepsis secondary to pneumonia and chronic obstructive pulmonary disease exacerbation. SECONDARY DIAGNOSES: 1. Chronic obstructive pulmonary disease. 2. Bipolar disorder. 3. Hypokalemia. 4. History of CVA. 5. Migraine. 6. Latent syphilis. DISCHARGE MEDICATIONS: 1. Albuterol sulfate 0.63 mg nebulized q.4 p.r.n. shortness of breath. 2. Tessalon Perles 100 mg p.o. t.i.d. p.r.n. cough. 3. Doxycycline 100 mg p.o. b.i.d. x14 days. 4. Prednisone 50 mg p.o. q.a.m. x4 days. 5. Dulera 200 mcg/5 mcg inhaler one puff b.i.d. HOSPITAL COURSE: This is a 48-year-old female, who presented to the emergency room with cough and shortness of breath. The patient was noted to have a possible right lower lobe pneumonia along with COPD exacerbation. The patient was started on antibiotics, then steroids and given 2 L of oxygen. She was also started on scheduled DuoNebs during admission over the first 24 to 48 hours. By the second day of admission, a home O2 trial found no oxygen needs while sitting or walking. On the second day of admission, the hospital was contacted by the Department of Health, she had been identified who possibly had contact with a person who had been diagnosed with syphilis and it was recommended that this be screened with treponemal and nontreponemal labs. If both positive, with RPR low titer of 1:8. The patient states that she has a severe anaphylactic reaction to penicillin, therefore, discussion was had with Infectious disease, who recommended treating with doxycycline and this was started prior to discharge and it was recommended the patient have a 15 total day course of antibiotics and then outpatient followup with Infectious Disease. Prior to discharge, the patient was started on Dulera for better control of her COPD. DISCHARGE INSTRUCTIONS: Location: Home. Diet: Heart healthy. Activity: Ad grisel. Follow up with Infectious Disease in 1 week, 3 months, 6 months, and 12 months. Follow up with PCP within 1 week. Job ID: [id number] [id number]
== END 2018-11-29 16:10 | disposition home or self-care (01) | DRG 871 ==
LOC: ERS 17:19 → SURG B 21:06 → OBSVTOIN 11-26 11:20
PROVIDERS: ADMIT Family Medicine; ATTEND Family Medicine
DX: A41.9 Sepsis, unspecified organism (principal); J96.21 Acute and chronic respiratory failure with hypoxia; J18.1 Lobar pneumonia, unspecified organism; J44.1 Chronic obstructive pulmonary disease with (acute) exacerbation; G43.909 Migraine, unspecified, not intractable, without status migrainosus; A53.9 Syphilis, unspecified; E87.6 Hypokalemia; F31.9 Bipolar disorder, unspecified; I25.2 Old myocardial infarction; F17.210 Nicotine dependence, cigarettes, uncomplicated; Z86.73 Personal history of transient ischemic attack (TIA), and cerebral infarction without residual deficits; Z91.19 Patient's noncompliance with other medical treatment and regimen; Z59.0 Homelessness; Z88.0 Allergy status to penicillin
CPT/HCPCS: 36415; 71045; 80048; 80053; 81003; 81015; 83605; 83735; 84145; 85025; 86593; 86780; 87040; 87086; 87389; 87804; 87899; 93005; 94640; 96361; 96365; 96367; 96375; J0456; J0696; J1200; J1650; J2405; J2765; J2930; J3475; J7050; J7620